=== PATIENT | female | born 1980 | race Caucasian/White ===

== ENCOUNTER 2025-08-08 19:24 | Inpatient (IN) ==
[2025-08-08 20:11] LABS: Hematocrit (blood only) 39.4 % (37.0-47.0); Hemoglobin 13.5 g/dL (12.0-16.0); Immature Granulocytes # (auto) 0.00 K/uL (0.01-0.20); Immature Granulocytes % (auto) 0.0 %; Mean Corpuscular Hemoglobin 29.8 pg (25.0-34.0); Mean Corpuscular Volume 87.0 fL (80.0-100.0); Platelet Count 290 K/uL (130-400); RDW Standard Deviation 41.6 fL (36.4-46.3); Red Blood Count 4.53 M/uL (4.20-5.40); White Blood Count 2.25 K/ul (4.8-10.8)
[2025-08-08 20:22] LABS: Appearance Urine Clear (Clear); Bacteria Urine Automated None Seen (None Seen); Cast Urine Automated 0-2 /lpf (0-2); Epithelial Cell Urine Auto 0-2 /hpf (0-2); Glucose Urine UA Negative (Negative); WBC Urine Automated 0-5 /hpf (0-5)
--- NOTE | 2025-08-08 20:23 | Emergency Department Note ---
Impression & Plan Choledocholithiasis, Right upper quadrant abdominal pain, Transaminitis, Hyperbilirubinemia, Acute cholecystitis ED Provider Note HISTORY OF PRESENT ILLNESS: Patient is a 44-year-old female presenting with right upper quadrant abdominal pain. Patient reports over the last 3 to 4 weeks she has been having intermittent episodes of right upper quadrant abdominal pain. She had a episode last night and was unable to get comfortable. She had workup done in the outpatient setting and her laboratory workup noted that she had elevated liver function tests and an ultrasound of her liver showed that she had a gallstone in her common bile duct. She was referred to the emergency department. She is currently denying any pain or nausea at this time. Denies any vomiting or diarrhea. Denies any fevers or chills. She is currently receiving chemotherapy. ROS: as above PHYSICAL EXAM: Constitutional: Patient appears in no acute distress. HENT: Head: Normocephalic and atraumatic. Eyes: EOMI, PERRL Mouth/Throat: Mucous membranes moist. Neck: Trachea midline. Neck supple. Cardiovascular: RRR, No murmurs, rubs or gallops. Intact distal pulses. Pulmonary/Chest: No respiratory distress. Breath sounds clear and equal bilaterally. No wheezes or rales. Abdominal: Abdomen soft, no tenderness, rebound or guarding. Musculoskeletal: No edema, tenderness or deformity noted. Skin: Warm and dry. No rash, erythema, pallor or cyanosis Psychiatric: Appropriate mood and affect for situation. Neurological: Alert and keenly responsive. CN II-XII grossly intact, moving all extremities equally and fully. MDM: - Vitals signs showed hypertension - History obtained via patient. History as above. - Chronic conditions affecting care: Hypothyroidism; multiple myeloma - Differential diagnoses include, but are not limited to: Biliary colic; cholangitis; cholecystitis; hepatitis; right lower lobe pneumonia; pulmonary embolism; pyelonephritis; herpes zoster; perforated duodenal ulcer; choledocholithiasis - Order placed for continuous cardiac monitoring. At this time, monitor showed rate of 70 bpm with normal sinus rhythm, per my interpretation. - External medical records reviewed. Ultrasound imaging of the right upper quadrant from earlier today was reviewed. Patient noted to have choledocholithiasis and the CBD was dilated to 8 mm. Noted to have cholelithiasis without evidence of acute cholecystitis. - Laboratory workup interpreted by myself showed leukopenia (WBC 2.25); stable electrolytes; elevated total bilirubin (1.8); transaminitis (AST 958; ALT 1072); normal lipase - UA negative for infection - CT abdomen/pelvis with IV contrast showed inflammatory changes surrounding the gallbladder concerning for potential acute cholecystitis. - Given patient's immunocompromise state, IV Zosyn was ordered in the setting of her choledocholithiasis. - Discussion was had with welfare case worker about patient's case and need for admission - Hospitalist consulted for admission - [facility] ASSESSMENT AND PLAN: Diagnosis: Choledocholithiasis; right upper quadrant abdominal pain; transaminitis; hyperbilirubinemia; acute cholecystitis Plan: admit Past Med/Surg History Problem List (Updated 08/08/25 @ 23:37 by Elsa Moreira MD) Acute cholecystitis (Acute) Hyperbilirubinemia (Acute) Transaminitis (Acute) Right upper quadrant abdominal pain (Acute) Choledocholithiasis (Acute) Gastritis Lumbar radiculopathy Compression fracture of T11 vertebra Arthralgia Gastric intestinal metaplasia Encounter for pre-operative examination Carpal tunnel syndrome, right Thoracic compression fracture still painful Chemotherapy-induced peripheral neuropathy CRPS (complex regional pain syndrome) Lupus Multiple myeloma dx 2021 Medical History Gastric intestinal metaplasia Thoracic compression fracture "still very painful" Multiple myeloma dx 2021 Lupus (systemic lupus erythematosus) Chemotherapy-induced peripheral neuropathy Acid reflux yearly PET scan showed high amounts of this, reason for up coming EGD Hypothyroid mild > no meds Anemia Surgical History History of esophagogastroduodenoscopy (EGD) Hx of partial thyroidectomy no meds > lump removed History of hysterectomy History of bilateral tubal ligation [place] teeth extracted S/P insertion of spinal cord stimulator 08/18/24, "has not been turned on in over 8 years, but will bring remote DOS" Hx of stem cell transplant 08/12/22 > reason for Valtrex History of bone marrow biopsy multiple H/O kyphoplasty 12/2021- in [place] H/O arthroscopic knee surgery 1999 > right Previous section 12/2007 Social History Smoking Status: Never smoker Second Hand Exposure: No; Do You Dip or Chew Tobacco: No; Hx Alcohol Use: Yes Alcohol type: wine Hx Substance Use: No Preferred Language: Liberian Communication Ability: Effective Visual Impairment: No Limitations Hearing Ability: Normal Loss Control Representative Required: No Beliefs That Will Affect Care: None marital status: Current Living Situation: Spouse and Family current occupational status: unemployed Feels Safe at Home: Yes Assistive Devices: Glasses Allergies Allergies Allergy/AdvReac Type Severity Reaction Status Date / Time No Known Drug Allergies Allergy Verified 06/01/25 12: Home Meds Home Medications Medication Instructions Recorded Confirmed acyclovir 400 mg tablet 400 mg PO BID 11/18/22 08/08/25 calcium carbonate (Calcium 600) 1,200 mg PO DAILY 11/18/22 08/08/25 daratumumab 20 mg/mL intravenous 20 mg IV MONTHLY 11/18/22 08/08/25 solution (Darzalex) denosumab 120 mg/1.7 mL (70 mg/mL) 120 mg subcut UD 11/18/22 08/08/25 subcutaneous solution (Xgeva) mecobalamin (vitamin B12) 1,000 1,000 mcg PO DAILY 11/18/22 08/08/25 mcg chewable tablet (B12 Active) ascorbic acid (vitamin C) 500 mg 1,000 mg PO DAILY 08/25/23 08/08/25 tablet,extended release (Vitamin C ER) dexamethasone 4 mg tablet 8 mg PO UD PRN day of infusions 08/18/24 08/08/25 magnesium 500 mg tablet 500 mg PO QAM 08/18/24 08/08/25 magnesium citrate 400 mg PO HS 08/18/24 08/08/25 oxycodone 5 mg tablet 5 mg PO UD PRN Pain 08/18/24 08/08/25 tacrolimus 0.1 % topical ointment 1 applic topical BID PRN as 03/10/25 08/08/25 directed montelukast 10 mg tablet 10 mg PO DAILY 03/30/25 08/08/25 acetaminophen 325 mg capsule 650 mg PO QID PRN Pain 08/08/25 08/08/25 ergocalciferol (vitamin D2) 10 mcg 10 mcg PO DAILY 12/01/25 12/01/25 (400 unit) tablet Previous Rx's Medication Instructions Recorded gabapentin 600 mg tablet 600 mg PO TID #90 tabs 04/18/23 hydroxychloroquine 400 mg tablet 400 mg PO QAM #180 tabs 03/08/25 baclofen 10 mg tablet 10 mg PO TID PRN muscle spasm #60 03/30/25 tabs duloxetine 30 mg capsule,delayed 30 mg PO BID #60 caps 07/01/25 release esomeprazole magnesium 40 mg 40 mg PO BID gerd 90 days #180 caps 08/01/25 capsule,delayed release (Nexium) Results & Data (ED) Vital Signs Vital Signs - 24 hr 08/08/25 19:31 08/08/25 21:24 Temperature 37 C Temperature Source Temporal Artery Scan Pulse Rate 73 Pulse Rate [Finger] 69 Pulse Rhythm Regular Pulse Rhythm [Finger] Regular Pulse Strength Normal Pulse Strength [Finger] Normal Respiratory Rate 17 16 Respiratory Effort / Characteristics Non-Labored Spontaneous Non-Labored Spontaneous Respiratory Depth Normal Normal Respiratory Pattern Regular Regular Blood Pressure 163/102 H Blood Pressure [Right Arm] 126/78 Blood Pressure Mean 122 Blood Pressure Mean [Right Arm] 94 Blood Pressure Position Sitting Blood Pressure Position [Right Arm] Semi-fowlers Pulse Oximetry 97 95 Oxygen Delivery Method Room Air Room Air Sepsis Recent Fever Within 48 Hours No Sepsis New/Unexplained Change in Mental Status N/A Sepsis Action Taken by Nursing No Action Required Laboratory Data 08/08/25 19:50 08/08/25 19:50 Lab Results 08/08/25 Range/Units 19:50 WBC 2.25 L (4.8-10.8) K/ul RBC 4.53 (4.20-5.40) M/uL Hgb 13.5 (12.0-16.0) g/dL Hct 39.4 (37.0-47.0) % MCV 87.0 (80.0-100.0) fL MCH 29.8 (25.0-34.0) pg MCHC 34.3 (32.0-36.0) g/dL RDW Std Deviation 41.6 (36.4-46.3) fL RDW Coeff of Adriana 13.2 (11.5-14.5) % Plt Count 290 (130-400) K/uL MPV 9.9 (9.4-12.4) fL Immature Gran % (Auto) 0.0 % Neut % (Auto) 82.3 % Lymph % (Auto) 16.0 % [place] % (Auto) 1.3 % Eos % (Auto) 0.0 % Baso % (Auto) 0.4 % Neut # (Auto) 1.85 (1.40-6.50) K/uL Lymph # (Auto) 0.36 L (1.20-3.40) K/uL [place] # (Auto) 0.03 L (0.11-0.59) K/uL Eos # (Auto) 0.00 (0.00-0.50) K/uL Baso # (Auto) 0.01 (0.00-0.20) K/uL Immature Gran # (Auto) 0.00 L (0.01-0.20) K/uL Sodium 137 (136-145) mmol/L Potassium 4.1 (3.5-5.1) mmol/L Chloride 102 (98-107) mmol/L Carbon Dioxide 26 (21-32) mmol/L Anion Gap 9 (3-11) BUN 8 (6-23) mg/dl Creatinine 0.50 L (0.6-1.2) mg/dl Est Cr Clr Drug Dosing 150.6 ml/min eGFR 117.07 BUN/Creatinine Ratio 16.0 (10-20) Glucose 120 H (70-99(Fasting)) mg/dl Calcium 9.6 (8.6-10.3) mg/dl Total Bilirubin 1.8 H (0.2-1.0) mg/dl AST 958 H (13-39) U/L ALT 1072 H (7-52) U/L Alkaline Phosphatase 231 H (34-104) U/L Total Protein 8.1 (6.0-8.3) gm/dl Albumin 4.6 (3.4-5.0) gm/dl Globulin 3.5 (2.5-4.0) gm/dl Albumin/Globulin Ratio 1.3 (0.9-2) Lipase 33 (11-82) U/L HCG, Qual Negative (Negative) Urine Color Dark Yellow Urine Appearance Clear (Clear) Urine pH 7.0 (4.5-7.5) Ur Specific [place] 1.012 (1.000-1.030) Urine Protein Negative (Negative) Urine Glucose (UA) Negative (Negative) Urine Ketones 1+ H (Negative) Urine Blood Trace H (Negative) Urine Nitrite Negative (Negative) Urine Bilirubin Negative (Negative) Urine Urobilinogen Negative (Negative) Ur Leukocyte Esterase Negative (Negative) Urine WBC (Auto) 0-5 (0-5) /hpf Urine RBC (Auto) 3-5 H (0-2) /hpf U Hyaline Cast (Auto) 0-2 (0-2) /lpf U Epithel Cells (Auto) 0-2 (0-2) /hpf Urine Bacteria (Auto) None Seen (None Seen) Urine Comment Administered Medications Discontinued Medications Piperacillin Sod/Tazobactam Sod (Zosyn) 4.5 gm in 100 mls @ 200 mls/hr IV NOW ONE; Protocol Stop: 08/08/25 22:59 Last Admin: 08/08/25 22:52 Dose: 200 mls/hr Documented By: elyssa Ioversol (Optiray 320 100ml) 94 ml IV ONCE ONE Stop: 08/08/25 21:17 Last Admin: 08/08/25 21:16 Dose: 94 ml Documented By: Imaging Data Radiologist's Impression: Abdomen/Pelvis CT 08/08/25 19:38 Exam(s): CT ABDOMEN + PELVIS With Contrast EXAM: CT Abdomen and Pelvis With Intravenous Contrast CLINICAL HISTORY: Reason for exam: RUQ abd pain. TECHNIQUE: Axial computed tomography images of the abdomen and pelvis with intravenous contrast. CTDI is 21.15 mGy and DLP is 1074 mGy-cm. Automated exposure control was utilized for the study. A dose lowering technique was utilized adhering to the principles of ALARA. CONTRAST: The patient received 94 cc of Optiray 320 contrast material intravenously COMPARISON: Ultrasound dated 08/08/2025. FINDINGS: Lung bases: No consolidation. ABDOMEN: Liver: No mass. Gallbladder and bile ducts: No calcified stones. There are inflammatory changes surrounding the gallbladder. No ductal dilation. Pancreas: No mass. No ductal dilation. Spleen: No splenomegaly. Adrenals: No mass. Kidneys and ureters: No solid mass. No hydronephrosis. Stomach and bowel: There are retained foodstuffs and air within the stomach. There is air and stool noted in the colon.. PELVIS: Appendix: Unremarkable CT scan appearance noted the appendix.. Bladder: No calculi are noted within the bladder.. Reproductive: The patient appears to be status post hysterectomy.. ABDOMEN and PELVIS: Intraperitoneal space: No free air. No significant fluid collection. Bones/joints: There are degenerative changes in the spine. There is a compression fracture of the T11 vertebral body which is undergone vertebroplasty.. Soft tissues: Neurostimulator device is noted.. Vasculature: No abdominal aortic aneurysm. Lymph nodes: No enlarged lymph nodes. IMPRESSION: There are inflammatory changes surrounding the gallbladder. This may represent acute cholecystitis. If further evaluation is clinically necessary, consider correlation with MRI/MRCP. Electronically signed by: Kee Noriega MD 08/08/25 23:29 PM Discharge Plan Visit Data Chief Complaint: Referred by Doctor Stated Complaint: REF BY ED Provider: Elsa Moreira Discharge Problem: Choledocholithiasis, Right upper quadrant abdominal pain, Transaminitis, Hyperbilirubinemia, Acute cholecystitis Patient Disposition: Admitted As Inpatient Condition: Fair Discharge Instructions Interventions: ED Discharge Assessment Last Done: 08/08/25 23:34
[2025-08-08 20:30] LABS: Anion Gap 9.0 (3-11); Blood Urea Nitrogen 8.0 mg/dl (6-23); Calcium 9.6 mg/dl (8.6-10.3); Carbon Dioxide 26.0 mmol/L (21-32); Chloride 102.0 mmol/L (98-107); Creatinine Clr Calc Pharmacy 150.6 ml/min; Glucose 120.0 mg/dl (70-99(Fasting)); Potassium 4.1 mmol/L (3.5-5.1); Sodium 137.0 mmol/L (136-145)
[2025-08-08 20:38] LABS: Pregnancy Test, Serum Negative (Negative)
[2025-08-08 20:47] LABS: Alanine Aminotransferase 1072.0 U/L (7-52); Albumin Globulin Ratio 1.3 (0.9-2); Albumin Level 4.6 gm/dl (3.4-5.0); Alkaline Phosphatase 231.0 U/L (34-104); Bilirubin,Total 1.8 mg/dl (0.2-1.0); Globulin 3.5 gm/dl (2.5-4.0); Lipase 33.0 U/L (11-82); Total Protein 8.1 gm/dl (6.0-8.3)
[2025-08-08] MEDS: OPTIRAY 320 100ml IV ONE (21:16)
--- NOTE | 2025-08-08 22:34 | History & Physical Report ---
Date of Service August 08, 2025 Assessment & Plan (1) Right upper quadrant abdominal pain: (2) Choledocholithiasis: (3) Lupus: (4) Acid reflux: Plan 44yo female with history of multiple myeloma on Denosumab (Xgeva) presenting with 3-4 weeks of RUQ abdominal pain and bloating. Patient found to have abnormal LFTs on routine pre-chemotherapy labs today in mixed pattern - obstructive and hepatocellular. RUQUS with choledocholithiasis and dilated CBD at 8mm. #RUQ Abdominal Pain / Choledocholithiasis / Elevated LFTs -Admit to medical -Keep NPO after midnight -LR at 125mL/hr x 2L ordered -Zosyn 4.5gm IV q 8 -Morphine as needed for pain -Zofran as needed for nausea -Colace as needed for constipation -Awaiting results of CT Abdomen - may need MRCP -Consult Gastroenterology for possible ERCP in the AM -Repeat labs in AM - BMP, CBC, LFTs, check Acetaminophen level #Multiple myeloma - on Denosumab, follows with Dr. Hickey -Continue Acyclovir for chronic suppressive therapy #Lupus - follows with Rheumatology. Stable -Continue Plaquenil 400mg po qAM F/E/N -LR at 125mL/hr x 2L, BMP in AM, NPO after midnight Ppx - SCDs Code -Full Dispo - Admit to medical, possible ERCP in AM History of Present Illness Chief Complaint: RUQ abdominal pain Primary Care Provider: Sylvia Rodriguez Bette Bond is a pleasant 44yo female with history of multiple myeloma undergoing active chemotherapy under Dr. Hickey, lupus on hydroxychloroquine, GERD and hypothyroidism presenting with intermittent RUQ pain as well as abnormal LFTs. She reports 3-4 weeks of RUQ abdominal pain, bloating - fairly constant in nature. No relation to meals. She had routine labs drawn today prior to chemotherapy which revealed elevated LFTs (Tbili=1.5, EHA=063, JZB=356, QY=690). She had a liver ultrasound performed which revealed choledocholithiasis with CBD dilated to 8mm. No evidence of acute cholecystitis. Patient was referred to the ER for additional workup. No additional complaints. She denies chest pain, cough, SOB. No nausea, vomiting, diarrhea, urinary complaints. No jaundice or icterus. In the ER she is afebrile, HD stable ER Course: Zosyn Allergies Allergy/AdvReac Type Severity Reaction Status Date / Time No Known Drug Allergies Allergy Verified 06/01/25 12:25 Home Medications Medication Instructions Recorded Confirmed Type acyclovir 400 mg tablet 400 mg PO BID 11/18/22 08/08/25 History calcium carbonate (Calcium 600) 1,200 mg PO DAILY 11/18/22 08/08/25 History daratumumab 20 mg/mL intravenous 20 mg IV MONTHLY 11/18/22 08/08/25 History solution (Darzalex) denosumab 120 mg/1.7 mL (70 mg/mL) 120 mg subcut UD 11/18/22 08/08/25 History subcutaneous solution (Xgeva) mecobalamin (vitamin B12) 1,000 1,000 mcg PO DAILY 11/18/22 08/08/25 History mcg chewable tablet (B12 Active) gabapentin 600 mg tablet 600 mg PO TID #90 tabs 04/18/23 08/08/25 Rx ascorbic acid (vitamin C) 500 mg 1,000 mg PO DAILY 08/25/23 08/08/25 History tablet,extended release (Vitamin C ER) dexamethasone 4 mg tablet 8 mg PO UD PRN day of infusions 08/18/24 08/08/25 History magnesium 500 mg tablet 500 mg PO QAM 08/18/24 08/08/25 History magnesium citrate 400 mg PO HS 08/18/24 08/08/25 History oxycodone 5 mg tablet 5 mg PO UD PRN Pain 08/18/24 08/08/25 History hydroxychloroquine 400 mg tablet 400 mg PO QAM #180 tabs 03/08/25 08/08/25 Rx tacrolimus 0.1 % topical ointment 1 applic topical BID PRN as 03/10/25 08/08/25 History directed baclofen 10 mg tablet 10 mg PO TID PRN muscle spasm #60 03/30/25 08/08/25 Rx tabs montelukast 10 mg tablet 10 mg PO DAILY 03/30/25 08/08/25 History duloxetine 30 mg capsule,delayed 30 mg PO BID #60 caps 07/01/25 08/08/25 Rx release esomeprazole magnesium 40 mg 40 mg PO BID gerd 90 days #180 caps 08/01/25 08/08/25 Rx capsule,delayed release (Nexium) acetaminophen 325 mg capsule 650 mg PO QID PRN Pain 08/08/25 08/08/25 History ergocalciferol (vitamin D2) 10 mcg 10 mcg PO DAILY 08/08/25 08/08/25 History (400 unit) tablet Past Med/Surg History Problem List Hyperbilirubinemia (Acute) Transaminitis (Acute) Right upper quadrant abdominal pain (Acute) Choledocholithiasis (Acute) Gastritis Lumbar radiculopathy Compression fracture of T11 vertebra Arthralgia Gastric intestinal metaplasia Encounter for pre-operative examination Carpal tunnel syndrome, right Thoracic compression fracture still painful Chemotherapy-induced peripheral neuropathy CRPS (complex regional pain syndrome) Lupus Multiple myeloma dx 2021 Medical History Gastric intestinal metaplasia Thoracic compression fracture "still very painful" Multiple myeloma dx 2021 Lupus (systemic lupus erythematosus) Chemotherapy-induced peripheral neuropathy Acid reflux yearly PET scan showed high amounts of this, reason for up coming EGD Hypothyroid mild > no meds Anemia Surgical History History of esophagogastroduodenoscopy (EGD) Hx of partial thyroidectomy no meds > lump removed History of hysterectomy History of bilateral tubal ligation [place] teeth extracted S/P insertion of spinal cord stimulator 08/18/24, "has not been turned on in over 8 years, but will bring remote DOS" Hx of stem cell transplant 08/12/22 > reason for Valtrex History of bone marrow biopsy multiple H/O kyphoplasty 12/2021- in [place] H/O arthroscopic knee surgery 1999 > right Previous section 12/2007 Social History Smoking Status: Never smoker Second Hand Exposure: No; Do You Dip or Chew Tobacco: No; Hx Alcohol Use: Yes Alcohol type: wine Hx Substance Use: No Preferred Language: Syriac Communication Ability: Effective Visual Impairment: No Limitations Hearing Ability: Normal Swing Frame Grinder Operator Required: No Beliefs That Will Affect Care: None marital status: Current Living Situation: Spouse and Family current occupational status: unemployed Feels Safe at Home: Yes Assistive Devices: Glasses Review of Systems Review of Systems: All systems reviewed & are unremarkable except as noted in HPI & below Physical Exam Physical Exam: General: patient resting comfortably, NAD, non-toxic in appearance, AA&O x 4 Skin: warm, dry, intact, no rashes or lesions HEENT: NC/AT, PERRL, EOMI, anicteric sclera, conjunctiva without injection, external ear normal to inspection and nontender, nares patent, moist mucus membranes, dentition intact, no oropharyngeal lesions, neck supple, trachea midline, no LAD, no thyromegaly, no JVD Heart: +S1/S2, regular, no m/r/g Lungs: equal air entry bilaterally, no rales/rhonchi/wheezes Abd: +BS, soft, NT/ND, no masses/organomegaly/ascites Ext: warm, 2+ pulses in UE/LE bilaterally, no clubbing/cyanosis or edema Neuro: nonfocal, patient AA&O x 4, speech intact, no facial droop, moving all extremities on command with equal strength 5/5 Results & Data Results & Data Vital Signs (Past 12 Hours) Vital Signs Temp Pulse Pulse Resp BP BP Pulse Ox 08/08/25 21:24 69 16 126/78 95 08/08/25 19:31 37 C 73 17 163/102 H 97 O2 Del Method 08/08/25 21:24 Room Air 08/08/25 19:31 Room Air Laboratory Results Laboratory Results WBC 2.25 K/ul (4.8-10.8) L 08/08/25 19:50 RBC 4.53 M/uL (4.20-5.40) 08/08/25 19:50 Hgb 13.5 g/dL (12.0-16.0) 08/08/25 19:50 Hct 39.4 % (37.0-47.0) 08/08/25 19:50 MCV 87.0 fL (80.0-100.0) 08/08/25 19:50 MCH 29.8 pg (25.0-34.0) 08/08/25 19:50 MCHC 34.3 g/dL (32.0-36.0) 08/08/25 19:50 RDW Std Deviation 41.6 fL (36.4-46.3) 08/08/25 19:50 RDW Coeff of Adriana 13.2 % (11.5-14.5) 08/08/25 19:50 Plt Count 290 K/uL (130-400) 08/08/25 19:50 MPV 9.9 fL (9.4-12.4) 08/08/25 19:50 Immature Gran % (Auto) 0.0 % 08/08/25 19:50 Neut % (Auto) 82.3 % 08/08/25 19:50 Lymph % (Auto) 16.0 % 08/08/25 19:50 [place] % (Auto) 1.3 % 08/08/25 19:50 Eos % (Auto) 0.0 % 08/08/25 19:50 Baso % (Auto) 0.4 % 08/08/25 19:50 Neut # (Auto) 1.85 K/uL (1.40-6.50) 08/08/25 19:50 Lymph # (Auto) 0.36 K/uL (1.20-3.40) L 08/08/25 19:50 [place] # (Auto) 0.03 K/uL (0.11-0.59) L 08/08/25 19:50 Eos # (Auto) 0.00 K/uL (0.00-0.50) 08/08/25 19:50 Baso # (Auto) 0.01 K/uL (0.00-0.20) 08/08/25 19:50 Immature Gran # (Auto) 0.00 K/uL (0.01-0.20) L 08/08/25 19:50 Sodium 137 mmol/L (136-145) 08/08/25 19:50 Potassium 4.1 mmol/L (3.5-5.1) 08/08/25 19:50 Chloride 102 mmol/L (98-107) 08/08/25 19:50 Carbon Dioxide 26 mmol/L (21-32) 08/08/25 19:50 Anion Gap 9 (3-11) 08/08/25 19:50 BUN 8 mg/dl (6-23) 08/08/25 19:50 Creatinine 0.50 mg/dl (0.6-1.2) L 08/08/25 19:50 Est Cr Clr Drug Dosing 150.6 ml/min 08/08/25 19:50 eGFR 117.07 08/08/25 19:50 BUN/Creatinine Ratio 16.0 (10-20) 08/08/25 19:50 Glucose 120 mg/dl (70-99(Fasting)) H 08/08/25 19:50 Calcium 9.6 mg/dl (8.6-10.3) 08/08/25 19:50 Total Bilirubin 1.8 mg/dl (0.2-1.0) H 08/08/25 19:50 AST 958 U/L (13-39) H 08/08/25 19:50 ALT 1072 U/L (7-52) H 08/08/25 19:50 Alkaline Phosphatase 231 U/L (34-104) H 08/08/25 19:50 Total Protein 8.1 gm/dl (6.0-8.3) 08/08/25 19:50 Albumin 4.6 gm/dl (3.4-5.0) 08/08/25 19:50 Globulin 3.5 gm/dl (2.5-4.0) 08/08/25 19:50 Albumin/Globulin Ratio 1.3 (0.9-2) 08/08/25 19:50 Lipase 33 U/L (11-82) 08/08/25 19:50 HCG, Qual Negative (Negative) 08/08/25 19:50 Urine Color Dark Yellow 08/08/25 19:50 Urine Appearance Clear (Clear) 08/08/25 19:50 Urine pH 7.0 (4.5-7.5) 08/08/25 19:50 Ur Specific [place] 1.012 (1.000-1.030) 08/08/25 19:50 Urine Protein Negative (Negative) 08/08/25 19:50 Urine Glucose (UA) Negative (Negative) 08/08/25 19:50 Urine Ketones 1+ (Negative) H 08/08/25 19:50 Urine Blood Trace (Negative) H 08/08/25 19:50 Urine Nitrite Negative (Negative) 08/08/25 19:50 Urine Bilirubin Negative (Negative) 08/08/25 19:50 Urine Urobilinogen Negative (Negative) 08/08/25 19:50 Ur Leukocyte Esterase Negative (Negative) 08/08/25 19:50 Urine WBC (Auto) 0-5 /hpf (0-5) 08/08/25 19:50 Urine RBC (Auto) 3-5 /hpf (0-2) H 08/08/25 19:50 U Hyaline Cast (Auto) 0-2 /lpf (0-2) 08/08/25 19:50 U Epithel Cells (Auto) 0-2 /hpf (0-2) 08/08/25 19:50 Urine Bacteria (Auto) None Seen (None Seen) 08/08/25 19:50 Urine Comment 08/08/25 19:50 Code Status & VTE Plan VTE Prophylaxis Plan VTE Prophylaxis will be ordered: Yes PG Care Time/CCT Total # of Minutes Spent Total Time Spent with Patient: Total time spent is greater than 50% in coordination of care (as documented) at patient's floor/unit and/or counseling patient: Coding Level of Care Code 14063 INT INP/OBS CARE 3/75MIN Diagnoses Right upper quadrant abdominal pain R10.11 Choledocholithiasis K80.50 Lupus M32.9 Acid reflux K21.9
[2025-08-08] MEDS: PIPERACILLIN/TAZOBACTAM 4.5 GM/100 ML BAG IV ONE (22:52)
--- NOTE | 2025-08-08 23:31 | CT Scan Report ---
Exam(s): CT ABDOMEN + PELVIS With Contrast EXAM: CT Abdomen and Pelvis With Intravenous Contrast CLINICAL HISTORY: Reason for exam: RUQ abd pain. TECHNIQUE: Axial computed tomography images of the abdomen and pelvis with intravenous contrast. CTDI is 21.15 mGy and DLP is 1074 mGy-cm. Automated exposure control was utilized for the study. A dose lowering technique was utilized adhering to the principles of ALARA. CONTRAST: The patient received 94 cc of Optiray 320 contrast material intravenously COMPARISON: Ultrasound dated 08/08/2025. FINDINGS: Lung bases: No consolidation. ABDOMEN: Liver: No mass. Gallbladder and bile ducts: No calcified stones. There are inflammatory changes surrounding the gallbladder. No ductal dilation. Pancreas: No mass. No ductal dilation. Spleen: No splenomegaly. Adrenals: No mass. Kidneys and ureters: No solid mass. No hydronephrosis. Stomach and bowel: There are retained foodstuffs and air within the stomach. There is air and stool noted in the colon.. PELVIS: Appendix: Unremarkable CT scan appearance noted the appendix.. Bladder: No calculi are noted within the bladder.. Reproductive: The patient appears to be status post hysterectomy.. ABDOMEN and PELVIS: Intraperitoneal space: No free air. No significant fluid collection. Bones/joints: There are degenerative changes in the spine. There is a compression fracture of the T11 vertebral body which is undergone vertebroplasty.. Soft tissues: Neurostimulator device is noted.. Vasculature: No abdominal aortic aneurysm. Lymph nodes: No enlarged lymph nodes. IMPRESSION: There are inflammatory changes surrounding the gallbladder. This may represent acute cholecystitis. If further evaluation is clinically necessary, consider correlation with MRI/MRCP. Electronically signed by: Kee Noriega MD 08/08/25 23:29 PM
[2025-08-08] MEDS ORDERED: DOCUSATE SODIUM 100 MG CAP PO PRN (23:33)
[2025-08-08] MEDS ORDERED: MoRPHine SULFATE 2 MG/ML CARP IV PRN ×2 (23:33)
[2025-08-08] MEDS ORDERED: MELATONIN 3 MG TAB PO PRN (23:33)
[2025-08-08] MEDS ORDERED: BACLOFEN 10 MG TAB PO PRN (23:33)
[2025-08-08] MEDS ORDERED: ONDANSETRON INJ 2 MG/ML 2 ML VIAL IV PRN (23:33)
[2025-08-08] MEDS: LACTATED RINGER'S 1,000 ML IV SCH (23:57)
[2025-08-09] MEDS: PIPERACILLIN/TAZOBACTAM 4.5 GM/100 ML BAG IV SCH (03:55)
[2025-08-09 05:44] LABS: Hematocrit (blood only) 35.5 % (37.0-47.0); Hemoglobin 12.2 g/dL (12.0-16.0); Mean Corpuscular Hemoglobin 29.6 pg (25.0-34.0); Mean Corpuscular Volume 86.2 fL (80.0-100.0); Platelet Count 260 K/uL (130-400); RDW Standard Deviation 41.1 fL (36.4-46.3); Red Blood Count 4.12 M/uL (4.20-5.40); White Blood Count 4.47 K/ul (4.8-10.8)
[2025-08-09 06:00] LABS: Anion Gap 10.0 (3-11); Blood Urea Nitrogen 9.0 mg/dl (6-23); Calcium 8.8 mg/dl (8.6-10.3); Carbon Dioxide 22.0 mmol/L (21-32); Chloride 106.0 mmol/L (98-107); Creatinine Clr Calc Pharmacy 153.6 ml/min; Glucose 115.0 mg/dl (70-99(Fasting)); Potassium 4.1 mmol/L (3.5-5.1); Sodium 138.0 mmol/L (136-145)
[2025-08-09 06:34] LABS: INR 1.0 (0.9-1.1); Prothrombin Time 10.9 Seconds (9.0-12.0)
--- NOTE | 2025-08-09 09:05 | Gastrointestinal Consultation ---
Date of Consultation August 09, 2025 Assessment & Plan (1) Transaminitis: 44 year old female with history of multiple myeloma on Denosumab (Xgeva), arthralgia, CRPS, lupus, GERD and others below admitted through the ED w/ abnormal labs w/ associated 2/3 week history of upper gastrointestinal discomfort, episodic abdominal pain and increased GERD and imaging showing gallstones, biliary dilation and choledocholithiasis. NPO ERCP today - Risks, benefits, alternatives discussed Recommend general surgery consultation to discuss CCY Continue maintenance fluids Pain control Antiemetics PRN Continue ABX therapy I spent a total of 60 minutes on the date of service in review of patient's record, and previously obtained information in person and appropriate medical visit, discussion and education of plan, with patient and/or caregiver, placing orders for tests/referral/procedures as medically necessary and documentation of pertinent clinical information in patient's medical records for their visit today. (2) Choledocholithiasis: Supervising Physician Co-Signing Physician Notes I saw and examined this patient with our nurse practitioner and agree with her assessment and plan. Clinical picture consistent with biliary colic and acute cholecystitis. Imaging supported for choledocholithiasis. Liver enzymes elevated as well. Will proceed with ERCP and attempt stone extraction. History of Present Illness Reason for Consultation: choledocholithiasis Requesting Physician: Riley Garner Attending Physician: Riley Garner History of Present Illness 44 year old female with history of arthralgia, CRPS, MM, lupus, GERD and others below admitted through the ED w/ abnormal labs. GI was asked to evaluate for choledocholithiases. She endorses about 2/3 week history of upper gastrointes tinal discomfort, episodic abdominal pain and increased GERD. Denies nausea/vomiting. TB 1.8 AST 958 ALT 1072 ALKP 231 CTAP 2024: There are inflammatory changes surrounding the gallbladder. This may represent acute cholecystitis. If further evaluation is clinically necessary, consider correlation with MRI/MRCP. ABD US 2024: Choledocholithiasis. The CBD is dilated up to 8 mm. Cholelithiasis without evidence for acute cholecystitis. Allergies Allergy/AdvReac Type Severity Reaction Status Date / Time No Known Drug Allergies Allergy Verified 06/01/25 12:25 Home Medications Medication Instructions Recorded Confirmed Type acyclovir 400 mg tablet 400 mg PO BID 11/18/22 08/08/25 History calcium carbonate (Calcium 600) 1,200 mg PO DAILY 11/18/22 08/08/25 History daratumumab 20 mg/mL intravenous 20 mg IV MONTHLY 11/18/22 08/08/25 History solution (Darzalex) denosumab 120 mg/1.7 mL (70 mg/mL) 120 mg subcut UD 11/18/22 08/08/25 History subcutaneous solution (Xgeva) mecobalamin (vitamin B12) 1,000 1,000 mcg PO DAILY 11/18/22 08/08/25 History mcg chewable tablet (B12 Active) gabapentin 600 mg tablet 600 mg PO TID #90 tabs 04/18/23 08/08/25 Rx ascorbic acid (vitamin C) 500 mg 1,000 mg PO DAILY 08/25/23 08/08/25 History tablet,extended release (Vitamin C ER) dexamethasone 4 mg tablet 8 mg PO UD PRN day of infusions 08/18/24 08/08/25 History magnesium 500 mg tablet 500 mg PO QAM 08/18/24 08/08/25 History magnesium citrate 400 mg PO HS 08/18/24 08/08/25 History oxycodone 5 mg tablet 5 mg PO UD PRN Pain 08/18/24 08/08/25 History hydroxychloroquine 400 mg tablet 400 mg PO QAM #180 tabs 03/08/25 08/08/25 Rx tacrolimus 0.1 % topical ointment 1 applic topical BID PRN as 03/10/25 08/08/25 History directed baclofen 10 mg tablet 10 mg PO TID PRN muscle spasm #60 03/30/25 08/08/25 Rx tabs montelukast 10 mg tablet 10 mg PO DAILY 03/30/25 08/08/25 History duloxetine 30 mg capsule,delayed 30 mg PO BID #60 caps 07/01/25 08/08/25 Rx release esomeprazole magnesium 40 mg 40 mg PO BID gerd 90 days #180 caps 08/01/25 08/08/25 Rx capsule,delayed release (Nexium) acetaminophen 325 mg capsule 650 mg PO QID PRN Pain 08/08/25 08/08/25 History ergocalciferol (vitamin D2) 10 mcg 10 mcg PO DAILY 08/08/25 08/08/25 History (400 unit) tablet Patient History Medical History Gastric intestinal metaplasia Thoracic compression fracture "still very painful" Multiple myeloma dx 2021 Lupus (systemic lupus erythematosus) Chemotherapy-induced peripheral neuropathy Acid reflux yearly PET scan showed high amounts of this, reason for up coming EGD Hypothyroid mild > no meds Anemia Surgical History History of esophagogastroduodenoscopy (EGD) Hx of partial thyroidectomy no meds > lump removed History of hysterectomy History of bilateral tubal ligation [place] teeth extracted S/P insertion of spinal cord stimulator 08/18/24, "has not been turned on in over 8 years, but will bring remote DOS" Hx of stem cell transplant 08/12/22 > reason for Valtrex History of bone marrow biopsy multiple H/O kyphoplasty 12/2021- in [place] H/O arthroscopic knee surgery 1999 > right Previous section 12/2007 Social History Smoking Status: Never smoker Second Hand Exposure: No; Do You Dip or Chew Tobacco: No; Hx Alcohol Use: Yes Alcohol type: wine Hx Substance Use: No Preferred Language: Mohawk Communication Ability: Effective Visual Impairment: No Limitations Hearing Ability: Normal Clinical Research Physician Required: No Beliefs That Will Affect Care: None marital status: Current Living Situation: Spouse current occupational status: unemployed Feels Safe at Home: Yes Safety Concerns: Feels Safe At This Time Assistive Devices: Glasses Review of Systems Review of Systems: All other findings negative except as noted in HPI. Physical Exam Constitutional: WD/WN, vitals as above Respiratory: normal respiratory effort, lungs clear to auscultation Cardiovascular: Rate/Rhythm: regular rate and regular rhythm Gastrointestinal (Abdomen): normal bowel sounds, soft, nontender, no hepatosplenomegaly Skin: no rashes, warm and dry Results & Data Vital Signs (Past 12 Hours) Vital Signs Pulse Pulse Resp BP BP Pulse Ox O2 Del Method 08/09/25 07:11 68 08/09/25 06:00 70 20 122/77 95 Room Air 08/09/25 05:38 63 08/09/25 05:00 66 14 120/77 96 Room Air 08/09/25 04:00 69 20 123/82 97 Room Air 08/09/25 03:00 50 L 22 105/74 95 Room Air 08/09/25 02:00 58 L 16 107/63 92 Room Air 08/09/25 00:27 110/76 08/09/25 00:27 110/76 08/09/25 00:27 68 14 95 08/08/25 23:30 64 18 123/72 94 Room Air 08/08/25 23:00 70 18 127/73 94 Room Air 08/08/25 21:24 69 16 126/78 95 Room Air PG Care Time/CCT Total # of Minutes Spent Total Time Spent with Patient: Total time spent is greater than 50% in coordination of care (as documented) at patient's floor/unit and/or counseling patient: Coding Level of Care Code 32830 INT INP/OBS CARE 75MIN Diagnoses Transaminitis R74.01 Choledocholithiasis K80.50
[2025-08-09 09:28] LABS: Alanine Aminotransferase 767.0 U/L (7-52); Albumin Level 4.2 gm/dl (3.4-5.0); Alkaline Phosphatase 174.0 U/L (34-104); Bilirubin,Total 1.0 mg/dl (0.2-1.0); Total Protein 6.6 gm/dl (6.0-8.3)
[2025-08-09] MEDS: ACYCLOVIR 400 MG TAB PO SCH (10:26)
[2025-08-09] MEDS: GABAPENTIN 600 MG TAB PO SCH (10:27)
[2025-08-09] MEDS: HYDROXYCHLOROQUINE SULFATE 200 MG TAB PO SCH (10:27)
[2025-08-09] MEDS ORDERED: PROPOFOL IV EMULSION 10 MG/ML 20 ML VIAL IV ONE (11:43)
[2025-08-09] MEDS ORDERED: LIDOCAINE 2% 2 ML VIAL/AMP(20MG/ML) INFIL ONE (11:43)
[2025-08-09] MEDS ORDERED: ROCURONIUM BROMIDE 10 MG/ML 5 ML VIAL IV ONE (11:43)
[2025-08-09] MEDS ORDERED: ONDANSETRON INJ 2 MG/ML 2 ML VIAL ONE (11:43)
[2025-08-09] MEDS ORDERED: DEXAMETHASONE SOD INJ 4 MG/ML VIAL ONE (11:43)
[2025-08-09] MEDS ORDERED: MIDAZOLAM HCL 1 MG/ML 2ML VIAL ONE (11:43)
--- NOTE | 2025-08-09 12:00 | Anesthesiology Consultation ---
Date of Service August 09, 2025 Assessment & Plan Chart Review Chart Review: Acceptable Risk for Surgery and Patient NOT seen in Pre Admission Testing Consults Requested none ASA ASA3 Proposed Anesthesia Anesthesia Type: General Risk / Benefits Reviewed With: PT / POA / Parent / Guardian, Accepts Plan and Informed Consent Obtained History Surgery Operation Date: 08/09/25 11:40 Proposed Procedures p Endoscopic Retrograde Cholangiopancreatogram - Bayron Adams MD Height/Weight Height: 5 ft 5 in Weight: 84.1 kg Allergies Allergy/AdvReac Type Severity Reaction Status Date / Time No Known Drug Allergies Allergy Verified 06/01/25 12: Medications Home Medications Medication Instructions Recorded Confirmed Last Taken acyclovir 400 mg tablet 400 mg PO BID 11/18/22 08/08/25 08/26/24 calcium carbonate (Calcium 600) 1,200 mg PO DAILY 11/18/22 08/08/25 08/26/24 daratumumab 20 mg/mL intravenous 20 mg IV MONTHLY 11/18/22 08/08/25 08/04/24 solution (Darzalex) denosumab 120 mg/1.7 mL (70 mg/mL) 120 mg subcut UD 11/18/22 08/08/25 08/04/24 subcutaneous solution (Xgeva) mecobalamin (vitamin B12) 1,000 1,000 mcg PO DAILY 11/18/22 08/08/25 08/26/24 mcg chewable tablet (B12 Active) gabapentin 600 mg tablet 600 mg PO TID #90 tabs 04/18/23 08/08/25 08/27/24 ascorbic acid (vitamin C) 500 mg 1,000 mg PO DAILY 08/25/23 08/08/25 08/26/24 tablet,extended release (Vitamin C ER) dexamethasone 4 mg tablet 8 mg PO UD PRN day of infusions 08/18/24 08/08/25 08/04/24 magnesium 500 mg tablet 500 mg PO QAM 08/18/24 08/08/25 08/26/24 magnesium citrate 400 mg PO HS 08/18/24 08/08/25 08/26/24 oxycodone 5 mg tablet 5 mg PO UD PRN Pain 08/18/24 08/08/25 08/25/24 hydroxychloroquine 400 mg tablet 400 mg PO QAM #180 tabs 03/08/25 08/08/25 Unknown tacrolimus 0.1 % topical ointment 1 applic topical BID PRN as 03/10/25 08/08/25 Unknown directed baclofen 10 mg tablet 10 mg PO TID PRN muscle spasm #60 03/30/25 08/08/25 Unknown tabs montelukast 10 mg tablet 10 mg PO DAILY 03/30/25 08/08/25 Unknown duloxetine 30 mg capsule,delayed 30 mg PO BID #60 caps 07/01/25 08/08/25 Unknown release esomeprazole magnesium 40 mg 40 mg PO BID gerd 90 days #180 caps 08/01/25 08/08/25 Unknown capsule,delayed release (Nexium) acetaminophen 325 mg capsule 650 mg PO QID PRN Pain 08/08/25 08/08/25 Unknown ergocalciferol (vitamin D2) 10 mcg 10 mcg PO DAILY 08/08/25 08/08/25 Unknown (400 unit) tablet Active Medications Generic Name Dose Route Start Last Admin Trade Name Freq PRN Reason Stop Dose Admin Acyclovir 400 mg 08/09/25 09:00 08/09/25 10:26 Acyclovir 400 Mg Tab PO 09/08/25 08:59 400 mg BID DAVID Administration Duloxetine HCl 30 mg 08/09/25 09:00 08/09/25 10:53 Duloxetine Hcl 30 Mg Cap PO 09/08/25 08:59 30 mg BID DAVID Administration Gabapentin 600 mg 08/09/25 09:00 08/09/25 10:27 Gabapentin 600 Mg Tab PO 09/08/25 08:59 600 mg TID DAVID Administration Hydroxychloroquine Sulfate 400 mg 08/09/25 09:00 08/09/25 10:27 Hydroxychloroquine Sulfate 200 Mg Tab PO 09/08/25 08:59 400 mg QAM DAVID Administration Lactated Ringer's 1,000 mls @ 125 mls/hr 08/09/25 00:01 08/09/25 07:52 Lr IV 08/09/25 16:00 125 mls/hr .Q8H ADVID Administration Piperacillin Sod/Tazobactam Sod 4.5 gm in 100 mls @ 25 mls/hr 08/09/25 04:00 08/09/25 07:52 Zosyn IV 08/19/25 03:59 Infused Q8H DAVID Infusion Protocol Pantoprazole Sodium 40 mg 08/09/25 09:00 08/09/25 10:28 Pantoprazole 40 Mg Tab PO 09/08/25 08:59 40 mg BID DAVID Administration NPO Date Last Intake of Fluids: 08/09/25 Time Last Intake of Fluids: 10:53 Date Last Intake of Solids: 08/08/25 Time Last Intake of Solids: 21:00 Past Medical History Medical History Gastric intestinal metaplasia Thoracic compression fracture "still very painful" Multiple myeloma dx 2021 Lupus (systemic lupus erythematosus) Chemotherapy-induced peripheral neuropathy Acid reflux yearly PET scan showed high amounts of this, reason for up coming EGD Hypothyroid mild > no meds Anemia Exercise / Class Metabolic Activity II 4-5 Yardwork/Stairs/Walk up hill Past Surgical History Surgical History History of esophagogastroduodenoscopy (EGD) Hx of partial thyroidectomy no meds > lump removed History of hysterectomy History of bilateral tubal ligation [place] teeth extracted S/P insertion of spinal cord stimulator 08/18/24, "has not been turned on in over 8 years, but will bring remote DOS" Hx of stem cell transplant 08/12/22 > reason for Valtrex History of bone marrow biopsy multiple H/O kyphoplasty 12/2021- in [place] H/O arthroscopic knee surgery 1999 > right Previous section 12/2007 Past Anesthesia History No Hx of Anesthesia Complications and No Family Hx of Anesthesia Complications History of PONV No Hx of PONV and No Hx of Motion Sickness Social History Smoking Status: Never smoker Do You Dip or Chew Tobacco: No Hx Alcohol Use: Yes Alcohol type: wine alcohol intake frequency: holidays/special occasions only Hx Substance Use: No substance use type: does not use Review of Systems Constitutional: as per Subjective / HPI Physical Exam Vital Signs Last Vital Signs Temp 36.6 C 08/09/25 11:40 Pulse 68 08/09/25 11:40 Resp 16 08/09/25 11:40 BP 131/84 08/09/25 11:40 Pulse Ox 97 08/09/25 11:40 O2 Del Method Room Air 08/09/25 11:40 Constitutional WD/WN, vitals as above + acute distress Eyes PERRL, conjunctivae normal, anicteric sclerae ENMT external ear and nose normal, oropharynx normal Mouth: no dentition abnormality Thyromental Distance: > or= 3.5 Finger Breadths Mallampati Class: II Neck trachea midline, no thyromegaly Respiratory normal respiratory effort, lungs clear to auscultation Cardiovascular RRR, no murmur, no edema Musculoskeletal Head/Neck/Chest: normocephalic and head atraumatic Spine: normal cervical ROM and no pain with cervical ROM Extremities: extremities normal to inspection and strength 5/5 throughout; full ROM of extremities Skin no rashes, warm and dry Neurologic moves all extremities Motor/Sensory: no sensory deficit Psychiatric A+Ox3, euthymic affect Testing Laboratory Results 08/09/25 05:05 08/09/25 05:05 PT 10.9 Seconds (9.0-12.0) 08/09/25 05:05 INR 1.0 (0.9-1.1) 08/09/25 05:05 Urine Color Dark Yellow 08/08/25 19:50 Urine Appearance Clear (Clear) 08/08/25 19:50 Urine pH 7.0 (4.5-7.5) 08/08/25 19:50 Ur Specific [place] 1.012 (1.000-1.030) 08/08/25 19:50 Urine Protein Negative (Negative) 08/08/25 19:50 Urine Glucose (UA) Negative (Negative) 08/08/25 19:50 Urine Ketones 1+ (Negative) H 08/08/25 19:50 Urine Nitrite Negative (Negative) 08/08/25 19:50 Ur Leukocyte Esterase Negative (Negative) 08/08/25 19:50 Urine WBC (Auto) 0-5 /hpf (0-5) 08/08/25 19:50 Urine RBC (Auto) 3-5 /hpf (0-2) H 08/08/25 19:50 U Hyaline Cast (Auto) 0-2 /lpf (0-2) 08/08/25 19:50 U Epithel Cells (Auto) 0-2 /hpf (0-2) 08/08/25 19:50 Urine Bacteria (Auto) None Seen (None Seen) 08/08/25 19:50
[2025-08-09] MEDS: INDOMETHACIN 50 MG SUPP PR ONE (13:06)
[2025-08-09] MEDS ORDERED: SUGAMMADEX SODIUM 200 MG/2 ML VIAL IV ONE (13:22)
--- NOTE | 2025-08-09 13:40 | GI REPORT ---
[facility] Patient: ADEOLA PEOPLES : 1980 Sex at : Female Age: 44 Years Procedure: ERCP Date: 08/09/2025 Attending Physician: Bayron Adams MD Referring MD: Riley Garner M.d. Indications: - Bile duct stone(s) - Elevated liver enzymes Medications: - General Anesthesia - Indomethacin 100 mg AL - See the Anesthesia note for documentation of the administered medications Complications: - No immediate complications. Estimated Blood Loss: - Estimated blood loss was minimal. Procedure: - Prior to the procedure, a History and Physical was performed, and patient medications, allergies and sensitivities were reviewed. The patient's tolerance of previous anesthesia was reviewed. - The risks and benefits of the procedure and the sedation options and risks were discussed with the patient. All questions were answered and informed consent was obtained. - Prophylactic Antibiotics: The patient requires prophylactic antibiotics as clinically indicated based on published guidelines for the planned ERCP. The patient received antibiotic therapy before the procedure. - The ercp scope was introduced through the mouth and advanced to the duodenum and used to cannulate the bile duct. - The ERCP was accomplished without difficulty. - The patient tolerated the procedure well. - The ERCP was accomplished with ease. Findings: - The application support lead film was normal. Pancreatic duct not cannulated. - The bile duct was deeply cannulated with the short-nosed sphincterotome. Contrast was injected. I personally interpreted the bile duct images. Image quality was excellent. The lower third of the main duct contained filling defect(s) thought to be a possible stone. - An 8 mm biliary sphincterotomy was made with a short nose sphincterotome using ERBE electrocautery. There was self limited oozing from the sphincterotomy which did not require treatment. - The biliary tree was swept with a 12 mm balloon starting at the bifurcation. Stone extraction not documented but final balloon cholangiogram did not reveal any filling defects. Suspect stone passed. Impression: - A filling defect consistent with a stone was seen on the cholangiogram. - The examination was suspicious for choledocholithiasis. - A biliary sphincterotomy was performed. - The biliary tree was swept. No residual filling defects seen. Recommendation: - Continue present medications. - Watch for pancreatitis, bleeding, perforation, and cholangitis. - Clear liquid diet today. Procedure Code(s): - 38784, Endoscopic retrograde cholangiopancreatography (ERCP); with sphincterotomy/papillotomy - 11274, Endoscopic catheterization of the biliary ductal system, radiological supervision and interpretation Diagnosis Code(s): - K80.50, Calculus of bile duct without cholangitis or cholecystitis without obstruction - R74.8, Abnormal levels of other serum enzymes - R93.2, Abnormal findings on diagnostic imaging of liver and biliary tract CPT(R) - 2022 copyright [employer]. All Rights Reserved. The CPT codes, CCI edits and ICD codes generated are intended as suggestions and were generated based on input data. These codes are preliminary and upon area supervisor review may be revised to meet current compliance and payer requirements. The provider is responsible for the final determination of appropriate codes, and modifiers. Bayron Adams MD This document has been electronically signed. Note Initiated:08/09/2025 Note Completed:08/09/2025 1:39 PM [email or web address]\[email or web address]\[id number]
--- NOTE | 2025-08-09 14:23 | Fluoroscopy Report ---
ERCP CLINICAL HISTORY: Choledocholithiasis. COMPARISON: CT of the abdomen and pelvis and right upper quadrant ultrasound August 08, 2025. FLUOROSCOPY TIME: 2 minutes and 41 seconds. NUMBER OF FLUOROSCOPIC IMAGES: 8 Ka,r: 34.24 mGy. FINDINGS: T11 kyphoplasty was incidentally noted. Fluoroscopy was provided during ERCP. The common bi le duct was cannulated. Apparent filling defect within the common bile duct favors choledocholithiasi s. Balloon sweep through the common bile duct was performed. IMPRESSION: Fluoroscopy provided during ERCP. Electronically signed by: Zack Waite M.D. 08/09/2025 2:22 PM
[2025-08-09] MEDS: GLUCAGON FOR INJ 1 MG VIAL ONE (14:41)
--- NOTE | 2025-08-09 15:33 | Surgery Consultation ---
<Statement entered by Davina Troy MD - 08/09/25 15:53> I saw the patient with the physician recycling assistant and I agree w the assessment and plan of care. Date of Consultation August 09, 2025 Assessment & Plan (1) Choledocholithiasis: This is a 44yF with a PMH of multiple myeloma and lupus who presented to the [facility] ED on 08/08/25 with outpatient abnormal LFTs, abdominal bloating/pressure, and intermittent RUQ pain. This has been going on over the last several weeks and she was referred here. She underwent a outpatient RUQ US that showed + cholelithiasis with choledocholithiasis and in the ER a CT scan showed inflammation around the gallbladder concerning for acute cholecystitis. Patient denies fevers/chills, nausea/vomiting. PSH on abdomen includes hysterectomy, tubal ligation, . Today's blood work shows WBC 4, Hbg 12.2, Tb 1 (1.8), Db 0.3, AST 470, ALT, 767, Alkp 174. Vital signs are stable. On exam patient is resting in bed in no distress with minimal abdominal discomfort. She is s/p ERCP today with GI where they removed stone in the common bile duct. Patient is feeling well. Eager for cholecystectomy. We have discussed with Oncology that she is okay for surgery and technically not on active chemo. We will tentatively plan for the OR for lap ryder this upcoming 08/11/25. May have clears and keep NPO friday midnight prior to surgery. Continue IV abx. Patient agreeable with the plan. History of Present Illness Attending Physician: Riley Garner History of Present Illness This is a 44yF with a PMH of multiple myeloma and lupus who presented to the [facility] ED on 08/08/25 with outpatient abnormal LFTs, abdominal bloating/pressure, and intermittent RUQ pain. This has been going on over the last several weeks and she was referred here. She underwent a outpatient RUQ US that showed + cholelithiasis with choledocholithiasis and in the ER a CT scan showed inflammation around the gallbladder concerning for acute cholecystitis. Patient denies fevers/chills, nausea/vomiting. PSH on abdomen includes hysterectomy, tubal ligation, . Allergies Allergy/AdvReac Type Severity Reaction Status Date / Time No Known Drug Allergies Allergy Verified 06/01/25 12: Home Medications Medication Instructions Recorded Confirmed Type acyclovir 400 mg tablet 400 mg PO BID 11/18/22 08/08/25 History calcium carbonate (Calcium 600) 1,200 mg PO DAILY 11/18/22 08/08/25 History daratumumab 20 mg/mL intravenous 20 mg IV MONTHLY 11/18/22 08/08/25 History solution (Darzalex) denosumab 120 mg/1.7 mL (70 mg/mL) 120 mg subcut UD 11/18/22 08/08/25 History subcutaneous solution (Xgeva) mecobalamin (vitamin B12) 1,000 1,000 mcg PO DAILY 11/18/22 08/08/25 History mcg chewable tablet (B12 Active) gabapentin 600 mg tablet 600 mg PO TID #90 tabs 04/18/23 08/08/25 Rx ascorbic acid (vitamin C) 500 mg 1,000 mg PO DAILY 08/25/23 08/08/25 History tablet,extended release (Vitamin C ER) dexamethasone 4 mg tablet 8 mg PO UD PRN day of infusions 08/18/24 08/08/25 History magnesium 500 mg tablet 500 mg PO QAM 08/18/24 08/08/25 History magnesium citrate 400 mg PO HS 08/18/24 08/08/25 History oxycodone 5 mg tablet 5 mg PO UD PRN Pain 08/18/24 08/08/25 History hydroxychloroquine 400 mg tablet 400 mg PO QAM #180 tabs 03/08/25 08/08/25 Rx tacrolimus 0.1 % topical ointment 1 applic topical BID PRN as 03/10/25 08/08/25 History directed baclofen 10 mg tablet 10 mg PO TID PRN muscle spasm #60 03/30/25 08/08/25 Rx tabs montelukast 10 mg tablet 10 mg PO DAILY 03/30/25 08/08/25 History duloxetine 30 mg capsule,delayed 30 mg PO BID #60 caps 07/01/25 08/08/25 Rx release esomeprazole magnesium 40 mg 40 mg PO BID gerd 90 days #180 caps 08/01/25 08/08/25 Rx capsule,delayed release (Nexium) acetaminophen 325 mg capsule 650 mg PO QID PRN Pain 08/08/25 08/08/25 History ergocalciferol (vitamin D2) 10 mcg 10 mcg PO DAILY 08/08/25 08/08/25 History (400 unit) tablet Patient History Medical History Gastric intestinal metaplasia Thoracic compression fracture "still very painful" Multiple myeloma dx 2021 Lupus (systemic lupus erythematosus) Chemotherapy-induced peripheral neuropathy Acid reflux yearly PET scan showed high amounts of this, reason for up coming EGD Hypothyroid mild > no meds Anemia Surgical History History of esophagogastroduodenoscopy (EGD) Hx of partial thyroidectomy no meds > lump removed History of hysterectomy History of bilateral tubal ligation [place] teeth extracted S/P insertion of spinal cord stimulator 08/18/24, "has not been turned on in over 8 years, but will bring remote DOS" Hx of stem cell transplant 08/12/22 > reason for Valtrex History of bone marrow biopsy multiple H/O kyphoplasty 12/2021- in [place] H/O arthroscopic knee surgery 1999 > right Previous section 12/2007 Social History Smoking Status: Never smoker Second Hand Exposure: No; Do You Dip or Chew Tobacco: No; Hx Alcohol Use: Yes Alcohol type: wine Hx Substance Use: No Preferred Language: Pashto Communication Ability: Effective Visual Impairment: No Limitations Hearing Ability: Normal Sports Cartoonist Required: No Beliefs That Will Affect Care: None marital status: Current Living Situation: Spouse current occupational status: unemployed Feels Safe at Home: Yes Assistive Devices: Glasses Review of Systems Constitutional: no fever and no chills Respiratory: no dyspnea Gastrointestinal: + abdominal pain (some right upper abd) and + bloating; no nausea and no vomiting Integumentary: no yellowing of the skin Physical Exam Physical Exam: awake/alert, no distress Respiratory: normal respiratory effort Gastrointestinal (Abdomen): Percussion/Palpation: abdomen soft; abdomen nontender Results & Data Vital Signs (Past 12 Hours) Vital Signs Temp Pulse Pulse Pulse Resp BP BP 08/09/25 14:36 98.6 F 65 16 125/83 08/09/25 14:15 66 14 130/64 12/02/25 14:00 98.1 F 64 12 130/85 08/09/25 13:50 70 14 128/81 08/09/25 13:40 66 12 131/89 08/09/25 13:33 97.3 F L 74 18 138/93 08/09/25 11:40 97.9 F 68 16 131/84 08/09/25 10:54 98.4 F 63 14 127/94 08/09/25 08:00 63 16 118/75 08/09/25 07:11 68 08/09/25 06:00 70 20 122/77 08/09/25 05:38 63 08/09/25 05:00 66 14 120/77 08/09/25 04:00 69 20 123/82 Pulse Ox O2 Del Method O2 Flow Rate 08/09/25 14:36 93 Room Air 08/09/25 14:15 96 Room Air 08/09/25 14:00 97 Room Air 08/09/25 13:50 97 Room Air 08/09/25 13:40 100 Oxymask 3 08/09/25 13:33 100 Oxymask 6 08/09/25 11:40 97 Room Air 08/09/25 10:54 97 Room Air 08/09/25 08:00 98 Room Air 08/09/25 07:11 08/09/25 06:00 95 Room Air 08/09/25 05:38 08/09/25 05:00 96 Room Air 08/09/25 04:00 97 Room Air Diagnostic Findings EXAMINATION: US abdomen right upper quadrant COMPARISON: None HISTORY: Elevated LFTs TECHNIQUE: The right upper quadrant of the abdomen was scanned in standard fashion with specialized ultrasound transducers using both galicia scale and limited color Doppler techniques. Findings: Liver: The liver demonstrates normal homogeneous echotexture. 18.1 cm craniocaudal. No evidence of a focal hepatic mass or intrahepatic biliary ductal dilatation. The main portal vein is patent with antegrade flow. Gallbladder: Moderate volume of small calcified layering gallstones. No gallbladder wall thickening. Negative sonographic Nieves sign. Bile Ducts: Dilation of the common bile duct up to 8 mm. A 3 mm stone is seen in the distal CBD. Pancreas: Visualized portions of the head and body of the pancreas are unremarkable. Right kidney: Normal echotexture, without mass or hydronephrosis. Fluid: No evidence of ascites or pleural effusions. Impression: 1. Choledocholithiasis. The CBD is dilated up to 8 mm. 2. Cholelithiasis without evidence for acute cholecystitis. Electronically signed by Davin Marcelino 08-08-2025 5:29 PM Dictated: 08/08/25 1639 Exam(s): CT ABDOMEN + PELVIS With Contrast EXAM: CT Abdomen and Pelvis With Intravenous Contrast CLINICAL HISTORY: Reason for exam: RUQ abd pain. TECHNIQUE: Axial computed tomography images of the abdomen and pelvis with intravenous contrast. CTDI is 21.15 mGy and DLP is 1074 mGy-cm. Automated exposure control was utilized for the study. A dose lowering technique was utilized adhering to the principles of ALARA. CONTRAST: The patient received 94 cc of Optiray 320 contrast material intravenously COMPARISON: Ultrasound dated 08/08/2025. FINDINGS: Lung bases: No consolidation. ABDOMEN: Liver: No mass. Gallbladder and bile ducts: No calcified stones. There are inflammatory changes surrounding the gallbladder. No ductal dilation. Pancreas: No mass. No ductal dilation. Spleen: No splenomegaly. Adrenals: No mass. Kidneys and ureters: No solid mass. No hydronephrosis. Stomach and bowel: There are retained foodstuffs and air within the stomach. There is air and stool noted in the colon.. PELVIS: Appendix: Unremarkable CT scan appearance noted the appendix.. Bladder: No calculi are noted within the bladder.. Reproductive: The patient appears to be status post hysterectomy.. ABDOMEN and PELVIS: Intraperitoneal space: No free air. No significant fluid collection. Bones/joints: There are degenerative changes in the spine. There is a compression fracture of the T11 vertebral body which is undergone vertebroplasty.. Soft tissues: Neurostimulator device is noted.. Vasculature: No abdominal aortic aneurysm. Lymph nodes: No enlarged lymph nodes. IMPRESSION: There are inflammatory changes surrounding the gallbladder. This may represent acute cholecystitis. If further evaluation is clinically necessary, consider correlation with MRI/MRCP. Electronically signed by: Kee Noriega MD 08/08/25 23:29 PM ERCP 08/09/25: GS: T11 kyphoplasty was incidentally noted. Fluoroscopy was provided during ERCP. The common bile duct was cannulated. Apparent filling defect within the common bile duct favors choledocholithiasis. Balloon sweep through the common bile duct was performed. PG Care Time/CCT Total # of Minutes Spent Total Time Spent with Patient: Total time spent is greater than 50% in coordination of care (as documented) at patient's floor/unit and/or counseling patient: Coding Level of Care Code 73170 INT INP/OBS CARE MIN Diagnoses Choledocholithiasis K80.50
--- NOTE | 2025-08-09 22:29 | Hospitalist Progress Note ---
Date of Service August 09, 2025 Assessment & Plan (1) Right upper quadrant abdominal pain: (2) Choledocholithiasis: (3) Lupus: (4) Acid reflux: Plan 44yo female with history of multiple myeloma on Denosumab (Xgeva) presenting with 3-4 weeks of RUQ abdominal pain and bloating. Patient found to have abnormal LFTs on routine pre-chemotherapy labs today in mixed pattern - obstructive and hepatocellular. RUQUS with choledocholithiasis and dilated CBD at 8mm. #RUQ Abdominal Pain / Choledocholithiasis / Elevated LFTs -Admit to medical -Now S/P ERCP and gallstone extraction -will wait until for Lap ryder. -Diet resumed. -Patient would like to be discharged on after surgery if she is able -Morphine as needed for pain -Zofran as needed for nausea -Colace as needed for constipation will reorder LFTs to ensure improvement. #Multiple myeloma/Immunodeficiency - on Denosumab, follows with Dr. Hickey -Continue Acyclovir for chronic suppressive therapy #Lupus - follows with Rheumatology. Stable -Continue Plaquenil 400mg po qAM F/E/N -LR at 125mL/hr x 2L, BMP in AM, NPO after midnight Ppx - SCDs Code -Full Dispo - Admit to medical, possible ERCP in AM Admission and Anticipated Discharge Date Admission Date: August 08, 2025 Subjective Patient reports no new symptoms. Patient reports feeling back to her baseline after ERCP. Physical Exam Constitutional: WD/WN, vitals as above Neck: trachea midline, no thyromegaly Respiratory: normal respiratory effort, lungs clear to auscultation Cardiovascular: RRR, no murmur, no edema Gastrointestinal (Abdomen): normal bowel sounds, soft, nontender, no hepatosplenomegaly Psychiatric: A+Ox3, euthymic affect Results & Data Results & Data Vital Signs (Past 12 Hours) Vital Signs Temp Pulse Pulse Resp BP Pulse Ox O2 Del Method 08/09/25 14:36 37.0 C 65 16 125/83 93 Room Air 08/09/25 14:15 66 14 130/64 96 Room Air 08/09/25 14:00 36.7 C 64 12 130/85 97 Room Air 08/09/25 13:50 70 14 128/81 97 Room Air 08/09/25 13:40 66 12 131/89 100 Oxymask 08/09/25 13:33 36.3 C L 74 18 138/93 100 Oxymask 08/09/25 11:40 36.6 C 68 16 131/84 97 Room Air 08/09/25 10:54 36.9 C 63 14 127/94 97 Room Air O2 Flow Rate 08/09/25 14:36 08/09/25 14:15 08/09/25 14:00 08/09/25 13:50 08/09/25 13:40 3 08/09/25 13:33 6 08/09/25 11:40 08/09/25 10:54 PG Care Time/CCT Total # of Minutes Spent Total Time Spent with Patient: Total time spent is greater than 50% in coordination of care (as documented) at patient's floor/unit and/or counseling patient: Coding Level of Care Code 18556 SUB INP/OBS CARE 3/50MIN Diagnoses Right upper quadrant abdominal pain R10.11 Choledocholithiasis K80.50 Lupus M32.9 Acid reflux K21.9
[2025-08-10 07:00] LABS: Alanine Aminotransferase 450 U/L (7-52); Albumin Globulin Ratio 1.7 (0.9-2); Albumin Level 3.9 gm/dl (3.4-5.0); Alkaline Phosphatase 138 U/L (34-104); Anion Gap 7 (3-11); Bilirubin,Total 0.8 mg/dl (0.2-1.0); Blood Urea Nitrogen 10 mg/dl (6-23); Calcium 8.2 mg/dl (8.6-10.3); Carbon Dioxide 27 mmol/L (21-32); Chloride 106 mmol/L (98-107); Creatinine Clr Calc Pharmacy 144.8 ml/min; Globulin 2.3 gm/dl (2.5-4.0); Glucose 100 mg/dl (70-99(Fasting)); Potassium 3.7 mmol/L (3.5-5.1); Sodium 140 mmol/L (136-145); Total Protein 6.2 gm/dl (6.0-8.3)
--- NOTE | 2025-08-10 07:19 | Gastroenterology Progress Note ---
Date of Service August 10, 2025 Assessment & Plan (1) Acute cholecystitis: Plan: Plan for cholecystectomy on August 11 (2) Choledocholithiasis: Plan: Status post ERCP with sphincterotomy and balloon sweep of duct. No residual stones noted after balloon sweep of duct. No signs of cholangitis or pancreatitis. Plan for cholecystectomy on this admission. Admission and Anticipated Discharge Date Admission Date: August 08, 2025 Subjective Denies abdominal pain shortness of breath or chest pain Physical Exam Physical Exam: No acute distress Respiratory rate regular Cardiac rhythm regular Abdomen soft nontender Results & Data Results & Data Vital Signs (Past 12 Hours) Vital Signs Temp Pulse Resp BP Pulse Ox O2 Del Method 08/09/25 22:43 36.6 C 57 L 16 110/66 95 Room Air PG Care Time/CCT Total # of Minutes Spent Total Time Spent with Patient: Total time spent is greater than 50% in coordination of care (as documented) at patient's floor/unit and/or counseling patient: Coding Level of Care Code 21222 SUB INP/OBS CARE 2/35MIN Diagnoses Acute cholecystitis K81.0 Choledocholithiasis K80.50
[2025-08-10] MEDS: INDOCYANINE GREEN 25 MG VIAL INJ ONE (16:06)
[2025-08-10] MEDS ORDERED: LIDOCAINE 2% 2 ML VIAL/AMP(20MG/ML) INFIL ONE ×2 (16:11→16:15)
[2025-08-10] MEDS ORDERED: PROPOFOL IV EMULSION 10 MG/ML 20 ML VIAL IV ONE ×3 (16:11→18:51)
[2025-08-10] MEDS ORDERED: ROCURONIUM BROMIDE 10 MG/ML 5 ML VIAL IV ONE (16:11)
[2025-08-10] MEDS ORDERED: MIDAZOLAM HCL 1 MG/ML 2ML VIAL ONE (16:15)
[2025-08-10] MEDS ORDERED: DEXAMETHASONE SOD INJ 4 MG/ML VIAL ONE (16:15)
[2025-08-10] MEDS ORDERED: ONDANSETRON INJ 2 MG/ML 2 ML VIAL ONE (16:15)
--- NOTE | 2025-08-10 16:27 | Anesthesiology Consultation ---
Date of Service August 10, 2025 Assessment & Plan (1) Encounter for pre-operative examination: Chart Review Chart Review: Acceptable Risk for Surgery and Patient NOT seen in Pre Admission Testing Consults Requested none History Surgery Operation Date: 08/09/25 11:40 Proposed Procedures p Endoscopic Retrograde Cholangiopancreatogram - Bayron Adams MD Operation Date: 08/10/25 08:20 Proposed Procedures p Laparoscopic Cholecystectomy - Davina Troy MD Height/Weight Height: 5 ft 5 in Weight: 84.1 kg Allergies Allergy/AdvReac Type Severity Reaction Status Date / Time No Known Drug Allergies Allergy Verified 06/01/25 12:25 Medications Home Medications Medication Instructions Recorded Confirmed Last Taken acyclovir 400 mg tablet 400 mg PO BID 11/18/22 08/08/25 08/26/24 calcium carbonate (Calcium 600) 1,200 mg PO DAILY 11/18/22 08/08/25 08/26/24 daratumumab 20 mg/mL intravenous 20 mg IV MONTHLY 11/18/22 08/08/25 08/04/24 solution (Darzalex) denosumab 120 mg/1.7 mL (70 mg/mL) 120 mg subcut UD 11/18/22 08/08/25 08/04/24 subcutaneous solution (Xgeva) mecobalamin (vitamin B12) 1,000 1,000 mcg PO DAILY 11/18/22 08/08/25 08/26/24 mcg chewable tablet (B12 Active) gabapentin 600 mg tablet 600 mg PO TID #90 tabs 04/18/23 08/08/25 08/27/24 ascorbic acid (vitamin C) 500 mg 1,000 mg PO DAILY 08/25/23 08/08/25 08/26/24 tablet,extended release (Vitamin C ER) dexamethasone 4 mg tablet 8 mg PO UD PRN day of infusions 08/18/24 08/08/25 08/04/24 magnesium 500 mg tablet 500 mg PO QAM 08/18/24 08/08/25 08/26/24 magnesium citrate 400 mg PO HS 08/18/24 08/08/25 08/26/24 oxycodone 5 mg tablet 5 mg PO UD PRN Pain 08/18/24 08/08/25 08/25/24 hydroxychloroquine 400 mg tablet 400 mg PO QAM #180 tabs 03/08/25 08/08/25 Unknown tacrolimus 0.1 % topical ointment 1 applic topical BID PRN as 03/10/25 08/08/25 Unknown directed baclofen 10 mg tablet 10 mg PO TID PRN muscle spasm #60 03/30/25 08/08/25 Unknown tabs montelukast 10 mg tablet 10 mg PO DAILY 03/30/25 08/08/25 Unknown duloxetine 30 mg capsule,delayed 30 mg PO BID #60 caps 07/01/25 08/08/25 Unknown release esomeprazole magnesium 40 mg 40 mg PO BID gerd 90 days #180 caps 08/01/25 08/08/25 Unknown capsule,delayed release (Nexium) acetaminophen 325 mg capsule 650 mg PO QID PRN Pain 08/08/25 08/08/25 Unknown ergocalciferol (vitamin D2) 10 mcg 10 mcg PO DAILY 08/08/25 08/08/25 Unknown (400 unit) tablet Active Medications Generic Name Dose Route Start Last Admin Trade Name Freq PRN Reason Stop Dose Admin Acyclovir 400 mg 08/09/25 09:00 08/10/25 08:38 Acyclovir 400 Mg Tab PO 09/08/25 08:59 400 mg BID DAVID Administration Duloxetine HCl 30 mg 08/09/25 09:00 08/10/25 08:38 Duloxetine Hcl 30 Mg Cap PO 09/08/25 08:59 30 mg BID DAVID Administration Gabapentin 600 mg 08/09/25 09:00 08/10/25 14:21 Gabapentin 600 Mg Tab PO 09/08/25 08:59 600 mg TID DAVID Administration Hydroxychloroquine Sulfate 400 mg 08/09/25 09:00 08/10/25 08:39 Hydroxychloroquine Sulfate 200 Mg Tab PO 09/08/25 08:59 400 mg QAM DAVID Administration Piperacillin Sod/Tazobactam Sod 4.5 gm in 100 mls @ 25 mls/hr 08/09/25 04:00 08/10/25 15:42 Zosyn IV 08/19/25 03:59 25 mls/hr Q8H DAVID Administration Protocol Pantoprazole Sodium 40 mg 08/09/25 09:00 08/10/25 08:40 Pantoprazole 40 Mg Tab PO 09/08/25 08:59 40 mg BID DAVID Administration NPO Date Last Intake of Fluids: 08/10/25 Time Last Intake of Fluids: 08:00 Last Intake of Fluids Comment: MD aware Date Last Intake of Solids: 08/08/25 Time Last Intake of Solids: 19:00 Past Medical History Medical History Gastric intestinal metaplasia Thoracic compression fracture "still very painful" Multiple myeloma dx 2021 Lupus (systemic lupus erythematosus) Chemotherapy-induced peripheral neuropathy Acid reflux yearly PET scan showed high amounts of this, reason for up coming EGD Hypothyroid mild > no meds Anemia Past Surgical History Surgical History History of esophagogastroduodenoscopy (EGD) Hx of partial thyroidectomy no meds > lump removed History of hysterectomy History of bilateral tubal ligation [place] teeth extracted S/P insertion of spinal cord stimulator 08/18/24, "has not been turned on in over 8 years, but will bring remote DOS" Hx of stem cell transplant 08/12/22 > reason for Valtrex History of bone marrow biopsy multiple H/O kyphoplasty 12/2021- in [place] H/O arthroscopic knee surgery 1999 > right Previous section 12/2007 Social History Smoking Status: Never smoker Do You Dip or Chew Tobacco: No Hx Alcohol Use: Yes Alcohol type: wine alcohol intake frequency: holidays/special occasions only Hx Substance Use: No substance use type: does not use Physical Exam Vital Signs Last Vital Signs Temp 98.2 F 08/10/25 15:13 Pulse 66 08/10/25 15:13 Resp 16 08/10/25 15:13 BP 118/80 08/10/25 15:13 Pulse Ox 96 08/10/25 15:13 O2 Del Method Room Air 08/10/25 15:13 O2 Flow Rate 3 08/09/25 13:40 Testing Laboratory Results 08/09/25 05:05 08/10/25 06:01 PT 10.9 Seconds (9.0-12.0) 08/09/25 05:05 INR 1.0 (0.9-1.1) 08/09/25 05:05 Urine Color Dark Yellow 08/08/25 19:50 Urine Appearance Clear (Clear) 08/08/25 19:50 Urine pH 7.0 (4.5-7.5) 08/08/25 19:50 Ur Specific [place] 1.012 (1.000-1.030) 08/08/25 19:50 Urine Protein Negative (Negative) 08/08/25 19:50 Urine Glucose (UA) Negative (Negative) 08/08/25 19:50 Urine Ketones 1+ (Negative) H 08/08/25 19:50 Urine Nitrite Negative (Negative) 08/08/25 19:50 Ur Leukocyte Esterase Negative (Negative) 08/08/25 19:50 Urine WBC (Auto) 0-5 /hpf (0-5) 08/08/25 19:50 Urine RBC (Auto) 3-5 /hpf (0-2) H 08/08/25 19:50 U Hyaline Cast (Auto) 0-2 /lpf (0-2) 08/08/25 19:50 U Epithel Cells (Auto) 0-2 /hpf (0-2) 08/08/25 19:50 Urine Bacteria (Auto) None Seen (None Seen) 08/08/25 19:50
[2025-08-10] MEDS ORDERED: ONDANSETRON INJ 2 MG/ML 2 ML VIAL IV PRN (16:28)
[2025-08-10] MEDS ORDERED: ATROPINE SULFATE 0.1 MG/ML 10ML SYR IV PRN (16:28)
[2025-08-10] MEDS ORDERED: PROMETHAZINE HCL INJ 25 MG/ML 1 ML VIAL ONE (16:44)
--- NOTE | 2025-08-10 17:03 | History & Physical Bridge Note ---
Date of Service August 10, 2025 History & Physical Bridge Note I have examined the patient, reviewed the History & Physical and in the interval since the performance of the History & Physical I have noted the following changes of clinical significance: no changes noted
[2025-08-10] MEDS ORDERED: SUGAMMADEX SODIUM 200 MG/2 ML VIAL IV ONE (17:38)
[2025-08-10] MEDS: BUPIVACAINE/EPINEPHRINE 0.5% MPF 1:200,000 30 ML VIAL ONE (18:17)
--- NOTE | 2025-08-10 18:25 | Operative Report ---
PG Post Operative Report Pre & Post Diagnosis Operation Date: 08/10/25 08:20 Pre-Op Diagnosis: Choledocholithiasis Post-Op Diagnosis: Choledocholithiasis Cholecystitis I identified the patient and participated in the time-out.: Yes Procedure Operation Date: 08/10/25 08:20 Actual Procedures p Laparoscopic Cholecystectomy(Not Applicable) - Davina Troy MD Surgeon Davina Troy MD Devulcanizer Charger Gabby Alexandre Estimated Blood Loss 15 Findings Consistent with Post-Op Diagnosis Chronically inflamed gallbladder, dilated cystic duct likely from recent ERCP Specimens Gallbladder and contents Complications None Indications This is a very pleasant 44-year-old female with multiple comorbid issues who recently was found to have elevated liver enzymes. Workup revealed choledocholithiasis. She underwent ERCP with sphincterotomy yesterday. She has been doing well. She now presents for laparoscopic cholecystectomy, possible open cholecystectomy. Risks of procedure were discussed with the patient and they include bleeding, infection, injury to surrounding structures, need for further procedures, ductal injury, cystic duct stump leak, and cardiopulmonary events that can occur. Risks also include wound issues to include wound infection, dehiscence, and hernia. Alternatives include no surgery, which patient declines. Patient wishes to proceed with surgery. All questions were answered. Description of Procedure Informed consent was verified and site of surgery was verified and the patient was brought back to operating room. General anesthesia was administered. She was in the supine position. Her abdomen was prepped and draped in the usual sterile fashion. A surgical timeout was performed and there were no issues. Next, a left upper quadrant incision was made and a Veress needle was inserted and the abdomen was insufflated to about 15 mmHg. Next, a 30 degree laparoscope was inserted with a 5 mm trocar using the Optiview technique. This trocar was secured and the abdomen was inspected. There was no evidence of any injuries to structures from injury into the abdominal cavity. Next, 3 additional ports were placed and secured under direct vision. 2 were in the right upper quadrant and these were 5 mm ports and one was a 1 cm port to the left of the umbilicus. The gallbladder was inspected, it was seen to have some inflammation. It was retracted superiorly and laterally. It was mobilized laterally. The cystic duct and cystic artery were circumferentially dissected. The cystic duct was seen to be dilated likely due to recent ERCP. Due to the size, decision was made to upsize the 5 mm port to a 12 mm port and the endoscopic stapler, purple load was used to transect the cystic duct after obtaining the critical view of safety with the cystic duct and cystic artery with the liver bed behind them and no other structures between them. The gallbladder was then dissected off the liver bed using Bovie electrocautery and placed in Endo Catch bag and removed under direct vision. The liver bed was examined, there were few areas of oozing and these were cauterized and the oozing stopped. The staple line on the cystic duct was examined, there was no evidence of any bile drainage. The clips on the cystic artery were examined and there was no evidence of any bleeding. Next, under direct vision, the fascia of the 12 mm and 1 cm port were closed using the suture passer device with 2-0 Vicryl suture. The skin was closed using 4-0 Monocryl in a subcuticular fashion and local anesthesia was also infiltrated and sterile dressing was applied and the patient was weaned off anesthesia and transferred to recovery in stable condition. She tolerated the procedure well. I attest to the content of the Intraoperative Record and any orders documented therein. Any exceptions are noted below.
--- NOTE | 2025-08-10 19:34 | Anesthesiology Progress Note ---
Date of Service August 10, 2025 Anesthesia Post Procedure Vital Signs Vital Signs: Temp Pulse Pulse Resp BP BP Pulse Ox 08/10/25 19:20 98.1 F 71 16 110/68 96 08/10/25 19:05 98.1 F 64 13 115/67 100 08/10/25 18:55 68 12 113/68 97 08/10/25 18:45 65 14 128/77 99 08/10/25 18:37 98.8 F 74 16 131/74 99 08/10/25 15:13 98.2 F 66 16 118/80 96 08/09/25 22:43 97.9 F 57 L 16 110/66 95 O2 Del Method O2 Flow Rate 08/10/25 19:20 Room Air 08/10/25 19:05 Nasal Cannula 2 08/10/25 18:55 Oxymask 6 08/10/25 18:45 Oxymask 6 08/10/25 18:37 Oxymask 6 08/10/25 15:13 Room Air 08/09/25 22:43 Room Air Pain Intensity Abdomen: Pain Intensity: 1 Transfer of Care Handoff Completed per policy Notes Mental Status: alert / awake / arousable and participated in evaluation Patient Amnestic to Procedure: Yes Nausea / Vomiting: adequately controlled Pain: adequately controlled Airway Patency, RR, SpO2: stable & adequate BP & HR: stable & adequate Hydration State: stable & adequate Anesthetic Complications: no major complications apparent and Pt Satisfied with anesthetic care
[2025-08-10] MEDS: ACETAMINOPHEN 1,000 MG/100 ML VIAL IV SCH (19:42)
--- NOTE | 2025-08-10 20:22 | Hospitalist Progress Note ---
Date of Service August 10, 2025 Assessment & Plan (1) Acute cholecystitis: (2) Choledocholithiasis: (3) Lupus: (4) Acid reflux: (5) Multiple myeloma: Plan 44yo female with multiple myeloma on Denosumab (Xgeva) presenting with 3-4 weeks of RUQ abdominal pain and bloating. Patient found to have abnormal LFTs on routine pre-chemotherapy labs. RUQ U/S with suspected choledocholithiasis and dilated CBD at 8mm. #RUQ Abdominal Pain / Choledocholithiasis / Elevated LFTs / Acute cholecystitis - -POD #1 s/p ERCP; duct was swept, no stones found, but it was suspected she had passed a CBD stone -s/p lap ryder today - gall bladder inflammation seen, cystic duct mildly dilated -LFTs cont to improve -remains on IV zosyn -repeat LFTs am -diet as tolerated -can stop IV zosyn -appreciate GI and gen surg assistance #Multiple myeloma/Immunodeficiency - -on Denosumab, follows with Dr. Hickey at [facility] -CBC cell lines acceptable at this time -Continue Acyclovir for chronic suppressive therapy #Lupus - -follows with Rheumatology -Continue Plaquenil 400mg po qAM -no SLE flare at this time #GERD - -protonix 40mg BID hopefully home in am updated Admission and Anticipated Discharge Date Admission Date: August 08, 2025 Subjective saw patient post-lap ryder was very sleepy at bedside denied nausea or vomiting denied chest pain or dyspnea mild pain over incisions only Review of Systems Review of Systems: GI - had BM earlier today CV - no orthopnea pulm - no wheezing Physical Exam Physical Exam: gen - lying flat in bed comfortably, sleepy but does wake to answer basic quest ions mouth - MMM heart - RRR, s1 s2, no murmur lungs - CTA b/l abd - soft ND BS+; incisions abd wall are clean ext - no edema, pulses 2+ b/l feet Results & Data Results & Data Vital Signs (Past 12 Hours) Vital Signs Temp Pulse Pulse Resp BP BP Pulse Ox 08/10/25 19:45 36.8 C 69 16 96/61 L 94 08/10/25 19:20 36.7 C 71 16 110/68 96 08/10/25 19:05 36.7 C 64 13 115/67 100 08/10/25 18:55 68 12 113/68 97 08/10/25 18:45 65 14 128/77 99 08/10/25 18:37 37.1 C 74 16 131/74 99 08/10/25 15:13 36.8 C 66 16 118/80 96 O2 Del Method O2 Flow Rate 08/10/25 19:45 Room Air 08/10/25 19:20 Room Air 08/10/25 19:05 Nasal Cannula 2 08/10/25 18:55 Oxymask 6 08/10/25 18:45 Oxymask 6 08/10/25 18:37 Oxymask 6 08/10/25 15:13 Room Air Laboratory Results Laboratory Results - last 24 hr 08/10/25 06:01 Sodium 140 Potassium 3.7 Chloride 106 Carbon Dioxide 27 Anion Gap 7 BUN 10 Creatinine 0.52 L Est Cr Clr Drug Dosing 144.8 eGFR 115.97 BUN/Creatinine Ratio 19.2 Glucose 100 H Calcium 8.2 L Total Bilirubin 0.8 AST 150 H ALT 450 H Alkaline Phosphatase 138 H C-Reactive Protein < 0.50 Total Protein 6.2 Albumin 3.9 Globulin 2.3 L Albumin/Globulin Ratio 1.7 PG Care Time/CCT Total # of Minutes Spent Total Time Spent with Patient: Total time spent is greater than 50% in coordination of care (as documented) at patient's floor/unit and/or counseling patient: Coding Level of Care Code 88030 SUB INP/OBS CARE 10/02MIN Diagnoses Acute cholecystitis K81.0 Choledocholithiasis K80.50 Lupus M32.9 Acid reflux K21.9 Multiple myeloma C90.00
[2025-08-11 02:53] VITALS: RESP 16
[2025-08-11 06:17] LABS: Hematocrit (blood only) 31.4 % (37.0-47.0); Hemoglobin 10.6 g/dL (12.0-16.0); Mean Corpuscular Hemoglobin 30.2 pg (25.0-34.0); Mean Corpuscular Volume 89.5 fL (80.0-100.0); Platelet Count 220 K/uL (130-400); RDW Standard Deviation 45.0 fL (36.4-46.3); Red Blood Count 3.51 M/uL (4.20-5.40); White Blood Count 8.07 K/ul (4.8-10.8)
[2025-08-11 06:36] LABS: Alanine Aminotransferase 304.0 U/L (7-52); Albumin Globulin Ratio 1.7 (0.9-2); Albumin Level 3.7 gm/dl (3.4-5.0); Alkaline Phosphatase 118.0 U/L (34-104); Anion Gap 7.0 (3-11); Bilirubin,Total 0.6 mg/dl (0.2-1.0); Blood Urea Nitrogen 12.0 mg/dl (6-23); Calcium 8.0 mg/dl (8.6-10.3); Carbon Dioxide 26.0 mmol/L (21-32); Chloride 107.0 mmol/L (98-107); Creatinine Clr Calc Pharmacy 127.6 ml/min; Globulin 2.2 gm/dl (2.5-4.0); Glucose 98.0 mg/dl (70-99(Fasting)); Potassium 3.9 mmol/L (3.5-5.1); Sodium 140.0 mmol/L (136-145); Total Protein 5.9 gm/dl (6.0-8.3)
[2025-08-11 07:51] VITALS: BP 108/69; PULSE 64; TEMP 98.6; O2SAT 94
--- NOTE | 2025-08-11 09:15 | Surgery Progress Note ---
<Statement entered by Davina Troy MD - 08/11/25 12:57> I independently saw and examined the patient, and I agree with the assessment and plan of care. Date of Service August 11, 2025 Assessment & Plan (1) Acute cholecystitis: Plan: POD#2 ERCP, POD#1 lap ryder WBC 8, LFTs downtrending. Vitals are stable Pain tolerable. On regular diet no n/v Incisions are c/d/i She is stable for discharge to home. d/c instructions reviewed F/u in office with Dr. Troy in 2 weeks Admission and Anticipated Discharge Date Admission Date: August 08, 2025 Subjective Patient feels well. Expected post op soreness. Tolerating diet, no n/v. Wants to go home Physical Exam Physical Exam: awake/alert, no distress Respiratory: normal respiratory effort Gastrointestinal (Abdomen): Inspection/Auscultation: + abdominal surgical incision (c/d/i with skin glue); abdomen not distended Percussion/Palpation: + abdomen tender (mild shanae incisional discomfort ) and abdomen soft Results & Data Vital Signs (Past 12 Hours) Vital Signs Temp Pulse Resp BP Pulse Ox O2 Del Method 08/11/25 07:51 98.6 F 64 108/69 94 Room Air 08/11/25 02:52 97.9 F 68 16 94/60 L 96 Room Air 08/10/25 22:09 97.9 F 81 18 102/65 94 Room Air 08/10/25 21:21 97.9 F 80 16 93/57 L 94 Room Air PG Care Time/CCT Total # of Minutes Spent Total Time Spent with Patient: Total time spent is greater than 50% in coordination of care (as documented) at patient's floor/unit and/or counseling patient: Coding Level of Care Code 08049 Post Operative Follow-Up Diagnoses Acute cholecystitis K81.0
--- NOTE | 2025-08-11 09:34 | Discharge Summary ---
Discharge Summary Date of Service August 11, 2025 Principal Dx & Hospital Course #1 = Principal Diagnosis (1) Acute cholecystitis: (2) Choledocholithiasis: (3) Lupus: (4) Acid reflux: (5) Multiple myeloma: Plan 44yo female with multiple myeloma on Denosumab (Xgeva) presenting with 3-4 weeks of RUQ abdominal pain and bloating. Patient found to have abnormal LFTs on routine pre-chemotherapy labs. RUQ U/S with suspected choledocholithiasis and dilated CBD at 8mm. #RUQ Abdominal Pain / Choledocholithiasis / Elevated LFTs / Acute cholecystitis - -POD #1 s/p ERCP; duct was swept, no stones found, but it was suspected she had passed a CBD stone -s/p lap ryder today - gall bladder inflammation seen, cystic duct mildly dilated -LFTs cont to improve -remains on IV zosyn -repeat LFTs am -diet as tolerated -can stop IV zosyn -appreciate GI and gen surg assistance #Multiple myeloma/Immunodeficiency - -on Denosumab, follows with Dr. Hickey at [facility] -CBC cell lines acceptable at this time -Continue Acyclovir for chronic suppressive therapy #Lupus - -follows with Rheumatology -Continue Plaquenil 400mg po qAM -no SLE flare at this time #GERD - -protonix 40mg BID hopefully home in am updated Admission HPI Per Admitting Provider Bette Bond is a pleasant 44yo female with history of multiple myeloma undergoing active chemotherapy under Dr. Hickey, lupus on hydroxychloroquine, GERD and hypothyroidism presenting with intermittent RUQ pain as well as abnormal LFTs. She reports 3-4 weeks of RUQ abdominal pain, bloating - fairly constant in nature. No relation to meals. She had routine labs drawn today prior to chemotherapy which revealed elevated LFTs (Tbili=1.5, XXJ=483, TQN=174, CS=683). She had a liver ultrasound performed which revealed choledocholithiasis with CBD dilated to 8mm. No evidence of acute cholecystitis. Patient was referred to the ER for additional workup. No additional complaints. She denies chest pain, cough, SOB. No nausea, vomiting, diarrhea, urinary complaints. No jaundice or icterus. In the ER she is afebrile, HD stable ER Course: Zosyn Discharge Exam gen - lying flat in bed comfortably, sleepy but does wake to answer basic questions mouth - MMM heart - RRR, s1 s2, no murmur lungs - CTA b/l abd - soft ND BS+; incisions abd wall are clean ext - no edema, pulses 2+ b/l feet Discharge Plan Discharge Items Patient Disposition: Home - Self-Care Reason For Visit: CHOLEDOCHOLITHIASIS Discharge Diagnosis: 1. choledocholithiasis - gallstone in bile duct (suspected) - resolved. 2. probable acute cholecystitis - laparoscopic cholecystectomy 08/10/25. 3. abnormal liver function tests due to #1, #2 - resolving. 4. multiple myeloma 5. lupus Activity: Per Instructions section Lifting: No more than 10 pounds Bathing Comment: may shower on 08/11; no soaking in bath tubs, hot tubs, pools x 2 weeks Exercise/Sports: Wait until after follow-up appointment Driving/Machine Use: no driving while on narcotics for pain Non-emergency contact: Primary Care Provider and Surgeon Call non-emergency contact if: you have any medication questions, your symptoms worsen, your pain is not controlled, you have a fever, your temperature is above 101, your wound has increased redness, your wound has increased drainage and your wound pain has increased Follow-up/Referrals: Sylvia Rodriguez [Primary Care Provider] - (1 week THE OFFICE WILL CALL YOU WITH A HOSPITAL FOLLOW UP VISIT IN 7-10 DAYS) Davina Troy MD [Surgeon] - 08/24/25 10:00 am (please call to schedule follow up in the office in 2 weeks ) Diet: Low Fat Addtl Attending Provider Instructions: SPECIAL CARE INSTRUCTIONS: * You have skin glue, called Dermabond, over your incisions. You may shower with this on. Do NOT pick at this as it will start to fall off on its own within the next 7-10 days. * You may shower on 08/11/2025 . NO soaking in bath tubs, hot tubs, or pools for 2 weeks * No lifting greater than 10lbs. No exercise until cleared by surgeon. Light walking is accepted. * No driving while taking narcotic pain medication * No drinking alcohol while taking narcotic pain medication * May use Ibuprofen over the counter for pain, if desired/if needed, starting August 15. You can take 600mg (3 x 200mg tablets) every 6-8 hours as needed for pain. * Expect some swelling and bruising. * Diet - resume your regular diet CALL YOUR DOCTOR IF: * Temperature above 101 degrees, nausea/vomiting, fever/chills * Pain not relieved by pain medicine ordered * There is increased drainage or redness from any incision * You have any unanswered questions or concerns [phone]. FOLLOW UP VISIT: If not already scheduled, please call the general surgery office for a follow-up visit. Office Additional instructions - 1. oxycodone 5mg every 4 hours as needed for pain. This medicine likely will cause constipation. It can also cause sleepiness; thus, no driving or operating heavy machinery if using oxycodone pain medicine. No alcohol if taking this medicine. 2. have your liver function tests repeated in about 1 week with your family doctor. Return to [facility] if - * you have fevers over 101 degrees * you have worsening abdominal pain * you develop severe diarrhea (3 or more liquid stools in 24 hours) * you have severe nausea/vomiting * you have chest pains or shortness of breath * you have yellowing of your eyes or skin * your incisions are becoming red, have drainage, etc. It was our pleasure caring for you! -Dragan Arora, [facility] medicine Pending Studies at Discharge: Yes Studies:: surgical pathology Stand-Alone Forms: My [facility], Smoking Cessation Medications and DC Order Prescriptions: Continued acyclovir 400 mg tablet 400 mg PO BID mecobalamin (vitamin B12) [B12 Active] 1,000 mcg tablet,chewable 1,000 mcg PO DAILY Xgeva 120 mg/1.7 mL (70 mg/mL) solution 120 mg subcut UD Patient Comments: last dose 08/04/24 Rx Instructions: given every 3 months Darzalex 20 mg/mL solution 20 mg IV MONTHLY Patient Comments: last dose 08/04/24 calcium carbonate [Calcium 600] 600 mg calcium (1,500 mg) tablet 1,200 mg PO DAILY montelukast 10 mg tablet 10 mg PO DAILY baclofen 10 mg tablet 10 mg PO TID PRN (Reason: muscle spasm) Qty: 60 0RF gabapentin 600 mg tablet 600 mg PO TID Qty: 90 3RF hydroxychloroquine 400 mg tablet 400 mg PO QAM Qty: 180 2RF duloxetine 30 mg capsule,delayed release(DR/EC) 30 mg PO BID Qty: 60 2RF esomeprazole magnesium [Nexium] 40 mg capsule,delayed release(DR/EC) 40 mg PO BID 90 Days Qty: 180 2RF tacrolimus 0.1 % ointment 1 applic topical BID PRN (Reason: as directed) Rx Instructions: Applied affected areas of face twice a day ascorbic acid (vitamin C) [Vitamin C] 500 mg Tablet Extended Release 1,000 mg PO DAILY ergocalciferol (vitamin D2) [Vitamin D2] 10 mcg (400 unit) Tablet 10 mcg PO DAILY magnesium 500 mg Tablet 500 mg PO QAM dexamethasone 4 mg tablet 8 mg PO UD PRN (Reason: day of infusions) magnesium citrate 400 mg PO HS Changed oxycodone 5 mg tablet 5 mg PO Q4H PRN (Reason: Pain) Qty: 20 0RF Held acetaminophen 325 mg Capsule 650 mg PO QID PRN (Reason: Pain) Hold Instructions: hold until your liver function tests have been rechecked Discharge Orders: Discharge Order (Routine); Ordered 08/11/25 Ordered By: Dragan Díaz/Other Patient Handouts: After Gallbladder Surgery, Having Laparoscopic Cholecystectomy Admission Data Admit Date/Time: 08/08/25 22:33 Attending Provider: Dragan Arora Admit Provider: Rosalba Pa Primary Care Provider: Sylvia Rodriguez Other Providers: Rosalba Pa; Bayron Adams I; Essence Sheppard; Almas Archibald; Jalil Mercado; Bong Rey; Mir Castillo; Alix Roth; Taz Faye; Jatin Stewart; Nikita Venegas; Gabby Alexandre; Vazquez Melvin; Bong Collins; Davina Troy Hospital Stay Data Consultations 08/08/25 22:07 Consult Gastroenterology Routine ED Decision to Admit Stat 08/09/25 13:57 Consult General Surgery Routine Procedures Performed Operation Date: 08/10/25 08:20 Actual Procedures p Laparoscopic Cholecystectomy(Not Applicable) - Davina Troy MD Diagnostic Imagining Performed 08/08/25 19:38 CT Abd and Pelvis [CT abd pelvis IV con only] Stat 08/09/25 11:30 [place] ERCP biliary ductal Routine Pending Results Patient Have Any Pending Studies at Discharge: Yes Discharge Instructions Given to Patient (Per Discharging Provider) SPECIAL CARE INSTRUCTIONS: * You have skin glue, called Dermabond, over your incisions. You may shower with this on. Do NOT pick at this as it will start to fall off on its own within the next 7-10 days. * You may shower on 08/11/2025 . NO soaking in bath tubs, hot tubs, or pools for 2 weeks * No lifting greater than 10lbs. No exercise until cleared by surgeon. Light wa lking is accepted. * No driving while taking narcotic pain medication * No drinking alcohol while taking narcotic pain medication * May use Ibuprofen over the counter for pain, if desired/if needed, starting August 15. You can take 600mg (3 x 200mg tablets) every 6-8 hours as needed for pain. * Expect some swelling and bruising. * Diet - resume your regular diet CALL YOUR DOCTOR IF: * Temperature above 101 degrees, nausea/vomiting, fever/chills * Pain not relieved by pain medicine ordered * There is increased drainage or redness from any incision * You have any unanswered questions or concerns [phone]. FOLLOW UP VISIT: If not already scheduled, please call the general surgery office for a follow-up visit. Office Additional instructions - 1. oxycodone 5mg every 4 hours as needed for pain. This medicine likely will cause constipation. It can also cause sleepiness; thus, no driving or operating heavy machinery if using oxycodone pain medicine. No alcohol if taking this medicine. 2. have your liver function tests repeated in about 1 week with your family doctor. Return to [facility] if - * you have fevers over 101 degrees * you have worsening abdominal pain * you develop severe diarrhea (3 or more liquid stools in 24 hours) * you have severe nausea/vomiting * you have chest pains or shortness of breath * you have yellowing of your eyes or skin * your incisions are becoming red, have drainage, etc. It was our pleasure caring for you! -Dragan Arora, [facility] medicine Coding Diagnoses Acute cholecystitis K81.0 Choledocholithiasis K80.50 Lupus M32.9 Acid reflux K21.9 Multiple myeloma C90.00
== END 2025-08-11 11:35 | disposition home or self-care (01) | DRG 418 ==
LOC: SUATTDRO → ED 19:24 → EDINP 22:33 → SUATTDRO 22:33 → 3E 23:34